=== PATIENT | female | born 1990 | race African-American/Black ===

== ENCOUNTER 2016-07-08 15:30 | Emergency (ER) | payer OTHER ==
[~2016-07-08] VITALS: Ht 157.5 cm; Wt 72.6 kg
[~2016-07-08 15:30] MED LIST: CYCL10TA2 PO; NAPR250T2 PO; NAPR550T PO
[2016-07-08 18:02] VITALS: BP 124/89
[2016-07-08 20:39] LABS: BILIRUBIN,URINE NEGATIVE (NEG); GLUCOSE,URINE NEGATIVE (NEG); NITRITE,URINE POSITIVE (NEG); PROTEIN,URINE NEGATIVE (NEG-TRACE)
[2016-07-08 20:58] LABS: BASO % 1 % (0-3); EOS % 2 % (0-3); HEMATOCRIT 38.9 % (36.0-47.0); HEMOGLOBIN 12.9 g/dL (12.0-15.5); LYMPH # 3.1 x10^3/uL (1.0-4.8); LYMPH % 41 % (24-48); MEAN CORPUSCULAR HEMOGLOBIN 32 pg (25-35); MEAN CORPUSCULAR HGB CONC 33 g/dL (31-37); MEAN CORPUSCULAR VOLUME 95 fL (79-100); MONO % 7 % (0-9); NEUT % 50 % (31-73); PLATELET COUNT 271 x10^3/uL (140-400); RED BLOOD COUNT 4.09 x10^6/uL (3.50-5.40); RED CELL DISTRIBUTION WIDTH 13.2 % (11.5-14.5); WHITE BLOOD COUNT 7.5 x10^3/uL (4.0-11.0)
[2016-07-08 21:02] LABS: BACTERIA,URINE 0 /HPF (0-FEW); RBC,URINE OCC /HPF (0-2); SQUAMOUS EPITHELIAL CELL,UR MOD /LPF
--- NOTE | 2016-07-08 21:34 | RAD ---
PROCEDURE Ob ultrasound 1st trimester and transvaginal OB ultrasound HISTORY Right pelvic pain and positive test TECHNIQUE Sonographic examination of the was performed by transabdominal and endovaginal technique. Multiple static images were obtained. OB ULTRASOUND LESS THAN 14 WEEKS The uterus measures 6.3 x 4.0 by 5.5 centimeters. There may be a gestational sac. Transvaginal OB ultrasound: The maternal cervix appears normal. Fluid in the fundus the uterus could be a gestational sac. The mean sac diameter of 1.0 centimeters would correspond with a 5 week 5 day gestational age and estimated date of confinement of March 05, 2017. The LMP of 04/02/2016 corresponds a 13 week 6 day gestational age and estimated date of confinement 01/07/2017. There is no yolk sac or pole identified. The right ovary appears normal with normal blood flow and measures 1.9 x 1.8 x 1.4 centimeters. There is a complex corpus luteal cyst on the right that measures 18 x 14 by 15 millimeters. The left ovary appears normal with normal blood flow and measures 2.9 x 1.8 by 2.2 centimeters. IMPRESSION There appears to be a gestational sac but no yolk sac or pole. This could be an early or a blighted ovum. Recommend correlation with serial quantitative beta HCG. If the continues a short-term followup ultrasound must be performed in order to document an intrauterine and thereby exclude a possible ectopic . Electronically signed by: Jasiel Gonzalez MD (Jul 08, 2016 21:33:35)
[2016-07-08 21:40] LABS: CALCIUM 9.4 mg/dL (8.5-10.1); CREATININE 0.6 mg/dL (0.6-1.0); GFR 146.2; POTASSIUM 3.5 mmol/L (3.5-5.1)
--- NOTE | 2016-07-08 21:55 | PHYS DOC ---
Past Medical History Past Medical History: Asthma Past Surgical History: Alcohol Use: Occasionally Drug Use: Marijuana Adult General Chief Complaint Chief Complaint: ABDOMINAL PAIN IN HPI HPI Patient is a 25 year old female who presents to the ER today secondary to abdominal pain and suprapubic area for one week. Patient reports her last menstrual period is unclear secondary to very irregular periods in general. Patient denies any vaginal bleeding. Patient has any vaginal discharge. Patient has no fevers shaking chills nausea vomiting diarrhea dysuria frequency or urgency. Patient has no history of hypertension diabetes liver lung or kidney problems. Patient reports she does not smoke or drink. Patient is allergic to penicillin. Patient is 4 para 3. Patient denies any other symptomatology at this time. Patient denies any history of STDs. Patient denies any history of ectopic pregnancies in the past Patient's physical exam is consistent with some mild tenderness to palpation in her suprapubic region. Patient is currently refusing a pelvic exam because she' s been here for 4 hours her kids are hungry and she does not want to have to wait any further. Patient's ER workup is significant for an ultrasound as below. Patient's beta hCG was approximately 5600. Patient's remainder of her labs were unremarkable. Given the beta-hCG and the ultrasound report I discussed with the patient detail that we are not able to rule out an ectopic , early , or an miscarriage. I have discussed with the patient that she will need to follow-up with an OB doctor for repeat hCG level and possibly repeat ultrasound within 2-3 days for reevaluation. Patient understand that she is to return immediately if she has any worsening pain or any other concern to the ER here so we can reevaluate her for possibility of an ectopic . Currently my suspicion for ectopic is low given her abdominal exam reveals minimal tenderness to palpation. The patient does understand that the ultrasound and the blood tests that we have done so far has not been able to exclude that diagnosis. [facility] [address] [place] [address] IMAGING REPORT Signed PATIENT: SHABBIR MAURO ACCOUNT: [id number] : 1990 LOCATION: ER AGE: 25 SEX: F EXAM STATUS: REG ER ORD. PHYSICIAN: JAREN FELIPE MD REASON: preg abd pain 1st triimester PROCEDURE: PREG 1ST TRIMESTER PROCEDURE Ob ultrasound 1st trimester and transvaginal OB ultrasound HISTORY Right pelvic pain and positive test TECHNIQUE Sonographic examination of the was performed by transabdominal and endovaginal technique. Multiple static images were obtained. OB ULTRASOUND LESS THAN 14 WEEKS The uterus measures 6.3 x 4.0 by 5.5 centimeters. There may be a gestational sac. Transvaginal OB ultrasound: The maternal cervix appears normal. Fluid in the fundus the uterus could be a gestational sac. The mean sac diameter of 1.0 centimeters would correspond with a 5 week 5 day gestational age and estimated date of confinement of March 05, 2017. The LMP of 04/02/2016 corresponds a 13 week 6 day gestational age and estimated date of confinement 01/07/2017. There is no yolk sac or pole identified. The right ovary appears normal with normal blood flow and measures 1.9 x 1.8 x 1.4 centimeters. There is a complex corpus luteal cyst on the right that measures 18 x 14 by 15 millimeters. The left ovary appears normal with normal blood flow and measures 2.9 x 1.8 by 2.2 centimeters. IMPRESSION There appears to be a gestational sac but no yolk sac or pole. This could be an early or a blighted ovum. Recommend correlation with serial quantitative beta HCG. If the continues a short-term followup ultrasound must be performed in order to document an intrauterine and thereby exclude a possible ectopic . Electronically signed by: Damon Cantrell MD (Jul 08, 2016 21:33:35) DICTATED and SIGNED BY: DAMON CANTRELL III, MD DATE: 07/08/162132 CC: JAREN FELIPE MD; NO PCP ~ Review of Systems Review of Systems Constitutional: Denies fever or chills [] Eyes: Denies change in visual acuity, redness, or eye pain [] All other review systems negative except as documented in the history of present illness portion. Allergies Allergies Allergies Coded Allergies Type Severity Reaction Last Updated Verified Penicillins Allergy Intermediate rash, hives 10/09/15 Yes amoxicillin Allergy Intermediate rash, hives 10/09/15 Yes Physical Exam Physical Exam Constitutional: Well developed, well nourished, no acute distress, non-toxic appearance. [] HENT: Normocephalic, atraumatic, bilateral external ears normal, oropharynx moist, no oral exudates, nose normal. [] Eyes: PERRLA, EOMI, conjunctiva normal, no discharge. [] Neck: Normal range of motion, no tenderness, supple, no stridor. [] Cardiovascular:Heart rate regular rhythm, no murmur [] Lungs & Thorax: Bilateral breath sounds clear to auscultation [] Abdomen: Bowel sounds normal, soft, mild tenderness to palpation suprapubic region tenderness, no masses, no pulsatile masses. [] Skin: Warm, dry, no erythema, no rash. [] Back: No tenderness, no CVA tenderness. [] Extremities: No tenderness, no cyanosis, no clubbing, ROM intact, no edema. [] Neurologic: Alert and oriented X 3, normal motor function, normal sensory function, no focal deficits noted. [] Psychologic: Affect normal, judgement normal, mood normal. [] Current Patient Data Vital Signs Vital Signs Date Time Temp Pulse Resp B/P Pulse Ox O2 Delivery O2 Flow Rate FiO2 07/08/16 18:02 98.4 85 18 124/89 98 Room Air 98.4 Lab Values Laboratory Tests Test 07/08/16 19:30 07/08/16 20:25 07/08/16 20:30 Urine Color Yellow Urine Clarity Cloudy Urine pH 7.0 Urine Specific [place] >=1.030 Urine Protein Negativemg/dL (NEG-TRACE) Urine Glucose (UA) Negativemg/dL (NEG) Urine Ketones (Stick) Negativemg/dL (NEG) Urine Blood Negative (NEG) Urine Nitrite Positive (NEG) Urine Bilirubin Negative (NEG) Urine Urobilinogen Dipstick 1.0mg/dL (0.2 mg/dL) Urine Leukocyte Esterase Trace (NEG) Urine RBC Occ/HPF (0-2) Urine WBC 1-4/HPF (0-4) Urine Squamous Epithelial Cells Mod/LPF Urine Amorphous Sediment Present/HPF Urine Bacteria 0/HPF (0-FEW) POC Urine HCG, Qualitative Hcg positive (Negative) White Blood Count 7.5x10^3/uL (4.0-11.0) Red Blood Count 4.09x10^6/uL (3.50-5.40) Hemoglobin 12.9g/dL (12.0-15.5) Hematocrit 38.9% (36.0-47.0) Mean Corpuscular Volume 95fL (79-100) Mean Corpuscular Hemoglobin 32pg (25-35) Mean Corpuscular Hemoglobin Concent 33g/dL (31-37) Red Cell Distribution Width 13.2% (11.5-14.5) Platelet Count 271x10^3/uL (140-400) Neutrophils (%) (Auto) 50% (31-73) Lymphocytes (%) (Auto) 41% (24-48) Monocytes (%) (Auto) 7% (0-9) Eosinophils (%) (Auto) 2% (0-3) Basophils (%) (Auto) 1% (0-3) Neutrophils # (Auto) 3.7x10^3uL (1.8-7.7) Lymphocytes # (Auto) 3.1x10^3/uL (1.0-4.8) Monocytes # (Auto) 0.5x10^3/uL (0.0-1.1) Eosinophils # (Auto) 0.1x10^3/uL (0.0-0.7) Basophils # (Auto) 0.0x10^3/uL (0.0-0.2) Maternal Serum HCG Beta Subunit 5659mIU/mL (0-6) H Sodium Level 140mmol/L (136-145) Potassium Level 3.5mmol/L (3.5-5.1) Chloride Level 102mmol/L (98-107) Carbon Dioxide Level 27mmol/L (21-32) Anion Gap 11 (6-14) Blood Urea Nitrogen 10mg/dL (7-20) Creatinine 0.6mg/dL (0.6-1.0) Estimated GFR (Cockcroft-Gault) 146.2 Glucose Level 82mg/dL (70-99) Calcium Level 9.4mg/dL (8.5-10.1) Laboratory Tests 07/08/16 20:30 Laboratory Tests 07/08/16 20:30 EKG EKG [] Radiology/Procedures Radiology/Procedures [] Course & Med Decision Making Course & Med Decision Making Pertinent Labs and Imaging studies reviewed. (See chart for details) [] Dragon Disclaimer Dragon Disclaimer This electronic medical record was generated, in whole or in part, using a voice recognition dictation system. Departure Departure Impression: Primary Impression: Threatened miscarriage in early Additional Impression: Early stage of Disposition: 01 HOME, SELF-CARE Condition: STABLE Referrals: NO PCP (PCP) Patient Instructions: Threatened Miscarriage Additional Instructions: [facility] [address] [place] [address] IMAGING REPORT Signed PATIENT: SHABBIR MAURO ACCOUNT: [id number] : 1990 LOCATION: ER AGE: 25 SEX: F EXAM STATUS: REG ER ORD. PHYSICIAN: JAREN FELIPE MD REASON: preg abd pain 1st triimester PROCEDURE: PREG 1ST TRIMESTER PROCEDURE Ob ultrasound 1st trimester and transvaginal OB ultrasound HISTORY Right pelvic pain and positive test TECHNIQUE Sonographic examination of the was performed by transabdominal and endovaginal technique. Multiple static images were obtained. OB ULTRASOUND LESS THAN 14 WEEKS The uterus measures 6.3 x 4.0 by 5.5 centimeters. There may be a gestational sac. Transvaginal OB ultrasound: The maternal cervix appears normal. Fluid in the fundus the uterus could be a gestational sac. The mean sac diameter of 1.0 centimeters would correspond with a 5 week 5 day gestational age and estimated date of confinement of March 05, 2017. The LMP of 04/02/2016 corresponds a 13 week 6 day gestational age and estimated date of confinement 01/07/2017. There is no yolk sac or pole identified. The right ovary appears normal with normal blood flow and measures 1.9 x 1.8 x 1.4 centimeters. There is a complex corpus luteal cyst on the right that measures 18 x 14 by 15 millimeters. The left ovary appears normal with normal blood flow and measures 2.9 x 1.8 by 2.2 centimeters. IMPRESSION There appears to be a gestational sac but no yolk sac or pole. This could be an early or a blighted ovum. Recommend correlation with serial quantitative beta HCG. If the continues a short-term followup ultrasound must be performed in order to document an intrauterine and thereby exclude a possible ectopic . Electronically signed by: Damon Cantrell MD (Jul 08, 2016 21:33:35) DICTATED and SIGNED BY: DAMON CANTRELL III, MD DATE: 07/08/162132 CC: JAREN FELIPE MD; NO PCP ~ Please follow up with your primary care physician or an deep sea diver for repeat evaluation of your hormone level and ultrasound. Please take this copy of the ultrasound report with you. Please return to the ER if she has any increasing abdominal pain, bleeding, or any concerns whatsoever. As discussed we are unable to rule out a tubal at this time in the ER. This will need to be ruled out by your primary OB doctor. Problem Qualifiers JAREN FELIPE MD Jul 08, 2016 21:55
== END 2016-07-08 19:50 | disposition home or self-care (01) ==
LOC: ER 15:30
DX: O20.0 Threatened abortion (principal); O99.511 Diseases of the respiratory system complicating pregnancy, first trimester; J45.909 Unspecified asthma, uncomplicated; O99.321 Drug use complicating pregnancy, first trimester; F12.10 Cannabis abuse, uncomplicated; Z3A.01 Less than 8 weeks gestation of pregnancy; Z88.0 Allergy status to penicillin; Z88.1 Allergy status to other antibiotic agents; Z98.890 Other specified postprocedural states
CPT/HCPCS: 36415; 76801; 80048; 81001; 81025; 84702; 85027; 86900; 86901; 87086; 99285-25

== ENCOUNTER 2016-09-21 21:00 | Emergency (ER) | payer OTHER ==
[2016-09-21] MEDS ORDERED: IV NORMAL SALINE 1000ML BAG 1,000 ML IV ONE ×2 (21:30→21:45)
[2016-09-21 21:45] LABS: BASO % 1 % (0-3); EOS % 2 % (0-3); HEMATOCRIT 43.6 % (36.0-47.0); HEMOGLOBIN 14.8 g/dL (12.0-15.5); LYMPH # 1.6 x10^3/uL (1.0-4.8); LYMPH % 22 % (24-48); MEAN CORPUSCULAR HEMOGLOBIN 32 pg (25-35); MEAN CORPUSCULAR HGB CONC 34 g/dL (31-37); MEAN CORPUSCULAR VOLUME 95 fL (79-100); MONO % 6 % (0-9); NEUT % 70 % (31-73); PLATELET COUNT 277 x10^3/uL (140-400); RED CELL DISTRIBUTION WIDTH 12.9 % (11.5-14.5); WHITE BLOOD COUNT 7.5 x10^3/uL (4.0-11.0)
[2016-09-21] MEDS ORDERED: ONDANSETRON PF 4 MG/2 ML VIAL. IV ONE ×2 (21:45)
[2016-09-21 21:56] LABS: CALCIUM 9.6 mg/dL (8.5-10.1); CREATININE 0.7 mg/dL (0.6-1.0); GFR 121.5; POTASSIUM 3.4 mmol/L (3.5-5.1)
[2016-09-21 22:02] LABS: ALBUMIN 4.2 g/dL (3.4-5.0); TOTAL BILIRUBIN 0.3 mg/dL (0.2-1.0); TOTAL PROTEIN 8.3 g/dL (6.4-8.2)
[2016-09-21 23:39] LABS: BILIRUBIN,URINE NEGATIVE (NEG); GLUCOSE,URINE NEGATIVE (NEG); NITRITE,URINE NEGATIVE (NEG); PROTEIN,URINE 100 mg/dL (NEG-TRACE); UROBILINOGEN,URINE 0.2 mg/dL (0.2 mg/dL)
[2016-09-21 23:44] LABS: BACTERIA,URINE MODERATE /HPF (0-FEW); RBC,URINE OCC /HPF (0-2); SQUAMOUS EPITHELIAL CELL,UR MANY /LPF
[2016-09-22] MEDS ORDERED: KETOROLAC 15 MG/ML VIAL. IV ONE
[2016-09-22] MEDS ORDERED: ONDANSETRON PF 4 MG/2 ML VIAL. IV ONE
[2016-09-22] MEDS ORDERED: HYDROmorphone 2 MG/ML VIAL IV ONE
[2016-09-22] MEDS ORDERED: IV NORMAL SALINE 1000ML BAG 1,000 ML IV ONE
[2016-09-22 00:33] VITALS: BP 156/95
[2016-09-22] MEDS ORDERED: ONDA4TAB10 SL (01:05)
[2016-09-22] MEDS ORDERED: OMEP20TA63 PO (01:05)
--- NOTE | 2016-09-22 01:05 | PHYS DOC ---
Past Medical History Past Medical History: Asthma Past Surgical History: Alcohol Use: Occasionally Drug Use: Marijuana Adult General Chief Complaint Chief Complaint: ABDOMINAL PAIN HPI HPI Patient is a 26 year old female who presents here today complaining of pain to her periumbilical area. Intermittent this morning. Patient reports that she drank a lot of alcohol yesterday. Patient did not fully laboratory but she reports she drank at least a 12 pack of beer and at least 2 bottles of liquor that were playing size. Patient denies any past medical history. Patient has any history of hypertension diabetes liver longer kidney problems. Patient denies any surgeries in the past. Patient has not had a cholecystectomy, hysterectomy, appendectomy. Patient does not smoke. Patient does not do any drugs. Patient reports that she is not a heavy drinker although she says that she has binge drinks approximately once or twice a week. Patient denies any fevers shakes chills. Patient has any diarrhea. Patient denies any dysuria frequency or urgency. Patient has any vaginal discharge. Patient denies any melena or bright red blood per rectum. Patient reports that she had D&C recently. Patient's last menstrual period was April 2016. Patient's physical exam the ER was significant for some tenderness to palpation in her midepigastric region. Patient had no rebound or guarding. Patient has normal active bowel sounds. Patient did not have a Casillas sign. Patient has no tenderness at McBurney's point. Patient is not exhibiting any signs or symptoms of be consistent with an acute surgical abdomen. Patient's ER workup was significant for normal labs. While in the ER patient was given IV fluids and pain meds initially. Initially was believe that the patient may have early pancreatitis. Patient's pain significantly improved in the ED after pain medicines here in the fluids. Upon reevaluation of the patient she is requesting to be discharged home she feels much improved. I discussed with the patient that she needs to eliminate alcohol from her life. I discussed with her that this might be early pancreatitis and that if she has any further pain or discomfort that she is to return to the ER for reevaluation. Patient was recommended to remain with a brat diet over the next 24-48 hours. Patient was to use clear liquids, rice, applesauce and toast. Patient understands the importance of this. Patient was given a prescription for antiemetics. Patient reports that her families outside waiting for that she is anxious to leave this time. Review of Systems Review of Systems Constitutional: Denies fever or chills [] Eyes: Denies change in visual acuity, redness, or eye pain [] All other review systems are negative except as documented in the history of present illness portion. Current Medications Current Medications Current Medications Medications (Trade) Dose Ordered Sig/Augustin Start Time Stop Time Status Last Admin Dose Admin Hydromorphone HCl (Dilaudid) 1 mg 1X ONCE 09/22/16 00:00 09/22/16 00:01 DC 09/22/16 00:25 1 MG Ketorolac Tromethamine (Toradol) 15 mg 1X ONCE 09/22/16 00:00 09/22/16 00:01 DC 09/22/16 00:24 15 MG Ondansetron HCl (Zofran) 4 mg 1X ONCE 09/22/16 00:00 09/22/16 00:01 DC 09/22/16 00:24 4 MG Sodium Chloride 1,000 ml @ 1,000 mls/hr 1X ONCE 09/22/16 00:00 09/22/16 00:59 DC 09/22/16 00:25 1,000 MLS/HR Allergies Allergies Allergies Coded Allergies Type Severity Reaction Last Updated Verified Penicillins Allergy Intermediate rash, hives 10/09/15 Yes amoxicillin Allergy Intermediate rash, hives 10/09/15 Yes Physical Exam Physical Exam Constitutional: Well developed, well nourished, no acute distress, non-toxic appearance. [] HENT: Normocephalic, atraumatic, bilateral external ears normal, oropharynx moist, no oral exudates, nose normal. [] Eyes: PERRLA, EOMI, conjunctiva normal, no discharge. [] Neck: Normal range of motion, no tenderness, supple, no stridor. [] Cardiovascular:Heart rate regular rhythm, no murmur [] Lungs & Thorax: Bilateral breath sounds clear to auscultation [] Abdomen: See above Skin: Warm, dry, no erythema, no rash. [] Back: No tenderness, no CVA tenderness. [] Extremities: No tenderness, no cyanosis, no clubbing, ROM intact, no edema. [] Neurologic: Alert and oriented X 3, normal motor function, normal sensory function, no focal deficits noted. [] Psychologic: Affect normal, judgement normal, mood normal. [] Current Patient Data Vital Signs Vital Signs Date Time Temp Pulse Resp B/P (MAP) Pulse Ox O2 Delivery O2 Flow Rate FiO2 09/22/16 00:33 89 19 156/95 (115) 97 Room Air 09/21/16 21:15 98.5 98.5 Lab Values Laboratory Tests Test 09/21/16 21:20 09/21/16 22:37 09/21/16 23:25 White Blood Count 7.5 x10^3/uL (4.0-11.0) Red Blood Count 4.60 x10^6/uL (3.50-5.40) Hemoglobin 14.8 g/dL (12.0-15.5) Hematocrit 43.6 % (36.0-47.0) Mean Corpuscular Volume 95 fL (79-100) Mean Corpuscular Hemoglobin 32 pg (25-35) Mean Corpuscular Hemoglobin Concent 34 g/dL (31-37) Red Cell Distribution Width 12.9 % (11.5-14.5) Platelet Count 277 x10^3/uL (140-400) Neutrophils (%) (Auto) 70 % (31-73) Lymphocytes (%) (Auto) 22 % (24-48) L Monocytes (%) (Auto) 6 % (0-9) Eosinophils (%) (Auto) 2 % (0-3) Basophils (%) (Auto) 1 % (0-3) Neutrophils # (Auto) 5.3 x10^3uL (1.8-7.7) Lymphocytes # (Auto) 1.6 x10^3/uL (1.0-4.8) Monocytes # (Auto) 0.5 x10^3/uL (0.0-1.1) Eosinophils # (Auto) 0.1 x10^3/uL (0.0-0.7) Basophils # (Auto) 0.0 x10^3/uL (0.0-0.2) Sodium Level 144 mmol/L (136-145) Potassium Level 3.4 mmol/L (3.5-5.1) L Chloride Level 105 mmol/L (98-107) Carbon Dioxide Level 23 mmol/L (21-32) Anion Gap 16 (6-14) H Blood Urea Nitrogen 11 mg/dL (7-20) Creatinine 0.7 mg/dL (0.6-1.0) Estimated GFR (Cockcroft-Gault) 121.5 BUN/Creatinine Ratio 16 (6-20) Glucose Level 129 mg/dL (70-99) H Calcium Level 9.6 mg/dL (8.5-10.1) Total Bilirubin 0.3 mg/dL (0.2-1.0) Aspartate Amino Transferase (AST) 17 U/L (15-37) Alanine Aminotransferase (ALT) 29 U/L (14-59) Alkaline Phosphatase 50 U/L (46-116) Total Protein 8.3 g/dL (6.4-8.2) H Albumin 4.2 g/dL (3.4-5.0) Albumin/Globulin Ratio 1.0 (1.0-1.7) Lipase 155 U/L (73-393) POC Urine HCG, Qualitative Hcg negative (Negative) Urine Collection Type Unknown Urine Color Yellow Urine Clarity Turbid Urine pH 8.0 Urine Specific [place] >=1.030 Urine Protein 100 mg/dL (NEG-TRACE) Urine Glucose (UA) Negative mg/dL (NEG) Urine Ketones (Stick) Negative mg/dL (NEG) Urine Blood Small (NEG) Urine Nitrite Negative (NEG) Urine Bilirubin Negative (NEG) Urine Urobilinogen Dipstick 0.2 mg/dL (0.2 mg/dL) Urine Leukocyte Esterase Trace (NEG) Urine RBC Occ /HPF (0-2) Urine WBC 1-4 /HPF (0-4) Urine Squamous Epithelial Cells Many /LPF Urine Bacteria Moderate /HPF (0-FEW) Urine Mucus Marked /LPF Laboratory Tests 09/21/16 21:20 Laboratory Tests 09/21/16 21:20 EKG EKG [] Radiology/Procedures Radiology/Procedures [] Course & Med Decision Making Course & Med Decision Making Pertinent Labs and Imaging studies reviewed. (See chart for details) [] Dragon Disclaimer Dragon Disclaimer This electronic medical record was generated, in whole or in part, using a voice recognition dictation system. Departure Departure Impression: Primary Impression: Gastritis Additional Impression: Abdominal pain Disposition: HOME, SELF-CARE Condition: IMPROVED Referrals: NO PCP (PCP) Patient Instructions: Abdominal Pain (Nonspecific), Alcohol Problems, Gastritis , Adult Scripts Ondansetron (ZOFRAN ODT) 4 Mg Tab.rapdis 1 TAB SL Q6HRS Y for NAUSEA, #12 TAB Prov: JAREN FELIPE MD 09/22/16 Omeprazole Magnesium (PRILOSEC OTC) 20 Mg Tablet.dr 1 TAB PO DAILY, #30 TAB 3 Refills Prov: JAREN FELIPE MD 09/22/16 Problem Qualifiers Primary Impression: Gastritis Gastritis type: alcoholic Chronicity: acute Gastritis bleeding: without bleeding Qualified Codes: K29.20 - Alcoholic gastritis without bleeding Additional Impression: Abdominal pain Abdominal location: epigastric Qualified Codes: R10.13 - Epigastric pain JAREN FELIPE MD September 22, 2016 01:05
== END 2016-09-22 01:16 | disposition home or self-care (01) ==
LOC: ER 21:00
DX: K29.20 Alcoholic gastritis without bleeding (principal); F10.10 Alcohol abuse, uncomplicated; J45.909 Unspecified asthma, uncomplicated; F12.10 Cannabis abuse, uncomplicated; Z88.1 Allergy status to other antibiotic agents; Z88.0 Allergy status to penicillin
CPT/HCPCS: 36415; 80053; 81001; 81025; 83690; 85027; 87086; 96361; 96374; 96375; 96376; 99284; J1170; J1885; J2405; J7030

== ENCOUNTER 2017-01-18 18:11 | Emergency (ER) | payer OTHER ==
[~2017-01-18] VITALS: Ht 157.5 cm; Wt 72.6 kg
[~2017-01-18 18:11] MED LIST changes: +NAPR-682 PO; -NAPR250T2 PO; +NAPR250T6 PO; -NAPR550T PO; +OMEP20TA63 PO; +ONDA4TAB10 SL
[2017-01-18 18:55] LABS: BASO % 1 % (0-3); EOS % 3 % (0-3); HEMATOCRIT 38.5 % (36.0-47.0); HEMOGLOBIN 13.2 g/dL (12.0-15.5); LYMPH # 2.4 x10^3/uL (1.0-4.8); LYMPH % 31 % (24-48); MEAN CORPUSCULAR HEMOGLOBIN 32 pg (25-35); MEAN CORPUSCULAR HGB CONC 34 g/dL (31-37); MEAN CORPUSCULAR VOLUME 93 fL (79-100); MONO % 10 % (0-9); NEUT % 55 % (31-73); PLATELET COUNT 275 x10^3/uL (140-400); RED BLOOD COUNT 4.14 x10^6/uL (3.50-5.40); RED CELL DISTRIBUTION WIDTH 12.8 % (11.5-14.5); WHITE BLOOD COUNT 7.7 x10^3/uL (4.0-11.0)
[2017-01-18 18:57] LABS: BILIRUBIN,URINE NEGATIVE (NEG); GLUCOSE,URINE NEGATIVE (NEG); NITRITE,URINE NEGATIVE (NEG); PH,URINE 6.5; PROTEIN,URINE NEGATIVE (NEG-TRACE); UROBILINOGEN,URINE 0.2 mg/dL (0.2 mg/dL)
[2017-01-18] MEDS ORDERED: ONDANSETRON ODT 4 MG TAB.RAPDIS. PO ONE (19:00)
[2017-01-18 19:11] LABS: CALCIUM 9.5 mg/dL (8.5-10.1); CREATININE 0.6 mg/dL (0.6-1.0); GFR 145.1; POTASSIUM 3.9 mmol/L (3.5-5.1)
[2017-01-18 19:16] LABS: ALBUMIN/GLOBULIN RATIO 1.1 (1.0-1.7); TOTAL BILIRUBIN 0.2 mg/dL (0.2-1.0); TOTAL PROTEIN 7.7 g/dL (6.4-8.2)
[2017-01-18 19:17] LABS: BACTERIA,URINE 0 /HPF (0-FEW); SQUAMOUS EPITHELIAL CELL,UR FEW /LPF; WBC,URINE 0 /HPF (0-4)
[2017-01-18 20:07] VITALS: BP 108/62
--- NOTE | 2017-01-18 20:17 | PHYS DOC ---
Past Medical History Past Medical History: Asthma Past Surgical History: Additional Past Surgical Histo: D&C Alcohol Use: Occasionally Drug Use: Marijuana Adult General Chief Complaint Chief Complaint: ABDOMINAL PAIN HPI HPI Patient is a 26 year old female who presents with intermittent abdominal pain/ pelvic pain for the past 2 weeks, abdominal distention, and nausea. Pain localizes over left lower quadrant. Patient denies urinary frequency urgency hematuria. No flank pain, vomiting or history of kidney stones. No fever chills , sweats. Patient has had irregular menstrual periods since miscarrying 5 months ago. Prior abdominal surgeries. Patient's last menstrual period was 6 weeks ago. Review of Systems Review of Systems Review of systems as per history of present illness. All other review symptoms are negative. Current Medications Current Medications Current Medications Medications (Trade) Dose Ordered Sig/Augustin Start Time Stop Time Status Last Admin Dose Admin Ondansetron HCl (Zofran Odt) 4 mg 1X ONCE 01/18/17 19:00 01/18/17 19:01 DC 01/18/17 18:55 4 MG Allergies Allergies Allergies Coded Allergies Type Severity Reaction Last Updated Verified Penicillins Allergy Intermediate rash, hives 10/09/15 Yes amoxicillin Allergy Intermediate rash, hives 10/09/15 Yes Physical Exam Physical Exam Constitutional: Well developed, well nourished, no acute distress, non-toxic appearance. [] HENT: Normocephalic, atraumatic, bilateral external ears normal, oropharynx moist, no oral exudates, nose normal. [] Eyes: PERRLA, EOMI, conjunctiva normal, no discharge. [] Neck: Normal range of motion, no tenderness, supple, no stridor. [] Cardiovascular:Heart rate regular rhythm, no murmur [] Lungs & Thorax: Bilateral breath sounds clear to auscultation [] Abdomen: Bowel sounds normal, soft, mild distention, increased bowel sounds, vague left lower quadrant pain, tenderness.. [] Skin: Warm, dry, no erythema. [] Back: No tenderness, no CVA tenderness. [] Extremities: No tenderness, no cyanosis, no clubbing, ROM intact, no edema. [] Neurologic: Alert and oriented X 3, normal motor function, normal sensory function, no focal deficits noted. [] Psychologic: Affect normal, judgement normal, mood normal. [] Current Patient Data Vital Signs Vital Signs Date Time Temp Pulse Resp B/P (MAP) Pulse Ox O2 Delivery O2 Flow Rate FiO2 01/18/17 20:07 84 16 108/62 (77) Room Air 01/18/17 19:37 95 01/18/17 18:35 98.0 98.0 Lab Values Laboratory Tests Test 01/18/17 17:48 01/18/17 18:45 POC Urine HCG, Qualitative Hcg positive (Negative) White Blood Count 7.7 x10^3/uL (4.0-11.0) Red Blood Count 4.14 x10^6/uL (3.50-5.40) Hemoglobin 13.2 g/dL (12.0-15.5) Hematocrit 38.5 % (36.0-47.0) Mean Corpuscular Volume 93 fL (79-100) Mean Corpuscular Hemoglobin 32 pg (25-35) Mean Corpuscular Hemoglobin Concent 34 g/dL (31-37) Red Cell Distribution Width 12.8 % (11.5-14.5) Platelet Count 275 x10^3/uL (140-400) Neutrophils (%) (Auto) 55 % (31-73) Lymphocytes (%) (Auto) 31 % (24-48) Monocytes (%) (Auto) 10 % (0-9) H Eosinophils (%) (Auto) 3 % (0-3) Basophils (%) (Auto) 1 % (0-3) Neutrophils # (Auto) 4.2 x10^3uL (1.8-7.7) Lymphocytes # (Auto) 2.4 x10^3/uL (1.0-4.8) Monocytes # (Auto) 0.8 x10^3/uL (0.0-1.1) Eosinophils # (Auto) 0.3 x10^3/uL (0.0-0.7) Basophils # (Auto) 0.0 x10^3/uL (0.0-0.2) Urine Collection Type Unknown Urine Color Yellow Urine Clarity Clear Urine pH 6.5 Urine Specific [place] 1.010 Urine Protein Negative mg/dL (NEG-TRACE) Urine Glucose (UA) Negative mg/dL (NEG) Urine Ketones (Stick) Negative mg/dL (NEG) Urine Blood Negative (NEG) Urine Nitrite Negative (NEG) Urine Bilirubin Negative (NEG) Urine Urobilinogen Dipstick 0.2 mg/dL (0.2 mg/dL) Urine Leukocyte Esterase Negative (NEG) Urine RBC 1-2 /HPF (0-2) Urine WBC 0 /HPF (0-4) Urine Squamous Epithelial Cells Few /LPF Urine Bacteria 0 /HPF (0-FEW) Maternal Serum HCG Beta Subunit 853 mIU/mL (0-5) H Sodium Level 137 mmol/L (136-145) Potassium Level 3.9 mmol/L (3.5-5.1) Chloride Level 101 mmol/L (98-107) Carbon Dioxide Level 25 mmol/L (21-32) Anion Gap 11 (6-14) Blood Urea Nitrogen 12 mg/dL (7-20) Creatinine 0.6 mg/dL (0.6-1.0) Estimated GFR (Cockcroft-Gault) 145.1 BUN/Creatinine Ratio 20 (6-20) Glucose Level 93 mg/dL (70-99) Calcium Level 9.5 mg/dL (8.5-10.1) Total Bilirubin 0.2 mg/dL (0.2-1.0) Aspartate Amino Transferase (AST) 14 U/L (15-37) L Alanine Aminotransferase (ALT) 22 U/L (14-59) Alkaline Phosphatase 42 U/L (46-116) L Total Protein 7.7 g/dL (6.4-8.2) Albumin 4.0 g/dL (3.4-5.0) Albumin/Globulin Ratio 1.1 (1.0-1.7) Laboratory Tests 01/18/17 18:45 Laboratory Tests 01/18/17 18:45 EKG EKG [] Radiology/Procedures Radiology/Procedures [OB ultrasound: 5 week, 5 day intrauterine gestational sac with no pole or yolk sac seen, small amount of free fluid posterior cul-de-sac, right-sided corpus luteal cyst per radiology report] Course & Med Decision Making Course & Med Decision Making Pertinent Labs and Imaging studies reviewed. (See chart for details) [Nonspecific abdominal pain. Abdomen nonsurgical on serial evaluation. GI symptoms, with menstrual period. Patient is 5 weeks 5 days with evidence of true uterine gestational sac, right corpus luteum and no evidence of ectopic . Nausea addressed while in the emergency department. Recommend continued care, Tylenol and Dramamine for nausea with OB follow-up. Return precautions reviewed.] Dragcarlos Disclaimer Dragon Disclaimer This electronic medical record was generated, in whole or in part, using a voice recognition dictation system. Departure Departure Impression: Primary Impression: Pelvic pain during in first trimester, antepartum Additional Impression: Vaginitis Disposition: 01 HOME, SELF-CARE Condition: GOOD Referrals: NO PCP (PCP) Problem Qualifiers JAE GUILLORY DO Jan 18, 2017 20:17
--- NOTE | 2017-01-18 21:33 | RAD ---
Obstetric ultrasound less than 14 weeks with transvaginal: Reason for examination: Cramping for 7 hours. Unsure of last menstrual period. A1. Transabdominal ultrasound examination was performed. The uterus measures 8.9 x 3.4 x 5.1 cm in greatest dimension with no focal mass. Endometrium is not abnormally thickened at 1.1 cm. The right ovary measures 4.0 x 4.4 x 3.0 cm in greatest dimension and contains a 2.8 x 2.6 x 2.4 cm cystic lesion. The left ovary measures 3.2 x 1.8 cm in greatest dimension and shows no focal lesion. Transvaginally, cervix is normal in the 4 cm and is closed. Uterus measures 8.8 x 3.7 cm in greatest dimension. Endometrium is slightly thickened at 1.6 cm and there is a probable gestational sac measuring 9.9 mm in greatest dimension consistent with a gestational age of 5 weeks 5 days. A pole and yolk sac are not seen. Right ovary again shows a 2.7 x 2.6 x 2.5 cm cystic lesion consistent with a probable corpus luteal cyst. The left ovary shows a few small follicles and normal vascular flow. There is a very small amount of free fluid in the pelvic cul-de-sac. IMPRESSION: Small 9.9 mm fluid collection probably representing an intrauterine gestational sac with gestational age of 5 weeks 5 days but no pole or yolk sac identified. 2.7 cm cystic lesion in the right ovary probably representing a corpus luteal cyst. Small amount of free fluid in the pelvic cul-de-sac. Electronically signed by: Verenice Mccray MD (01/18/2017 9:29 PM) [facility]
== END 2017-01-18 21:45 | disposition home or self-care (01) ==
LOC: ER 18:11
DX: O23.591 Infection of other part of genital tract in pregnancy, first trimester (principal); N76.0 Acute vaginitis; O26.891 Other specified pregnancy related conditions, first trimester; R10.2 Pelvic and perineal pain; O99.511 Diseases of the respiratory system complicating pregnancy, first trimester; J45.909 Unspecified asthma, uncomplicated; Z3A.01 Less than 8 weeks gestation of pregnancy; Z88.0 Allergy status to penicillin; Z88.1 Allergy status to other antibiotic agents
CPT/HCPCS: 36415; 76801; 76817; 80053; 81001; 81025; 84702; 85025; 99285; Q0162

== ENCOUNTER 2017-01-28 20:14 | Emergency (ER) | payer OTHER ==
[~2017-01-28] VITALS: Ht 157.5 cm; Wt 72.6 kg
[2017-01-28 20:54] VITALS: BP 101/59
--- NOTE | 2017-01-28 22:27 | PHYS DOC ---
Past Medical History Past Medical History: Asthma Past Surgical History: Additional Past Surgical Histo: D&C Alcohol Use: Occasionally Drug Use: Marijuana Adult General Chief Complaint Chief Complaint: MULTIPLE COMPLAINTS [facility] Patient is a 26 year old female with history of asthma who presents today with a productive cough and scratchy throat for 6 days. Patient states she's also had subjective fevers. Patient states she is unknown how far along last Menstrual cycle may be in December 04 2016. She states she was seen by the OB and was put on progesterone. She states she left her progesterone in [place] and would like another prescription for it. Patient denies any nausea vomiting. Denies any urgency frequency dysuria. Denies any back pain. Denies any abdominal pain. Review of Systems Review of Systems Constitutional: Denies fever or chills [] Eyes: Denies change in visual acuity, redness, or eye pain [] HENT: sore throat [] Respiratory: cough Cardiovascular: No additional information not addressed in HPI [] GI: Denies abdominal pain, nausea, vomiting, bloody stools or diarrhea [] : Denies dysuria or hematuria [] Musculoskeletal: Denies back pain or joint pain [] Integument: Denies rash or skin lesions [] Neurologic: Denies headache, focal weakness or sensory changes [] Endocrine: Denies polyuria or polydipsia [] Allergies Allergies Allergies Coded Allergies Type Severity Reaction Last Updated Verified Penicillins Allergy Intermediate rash, hives 10/09/15 Yes amoxicillin Allergy Intermediate rash, hives 10/09/15 Yes Physical Exam Physical Exam Constitutional: Well developed, well nourished, no acute distress, non-toxic appearance. [] HENT: Normocephalic, atraumatic, bilateral external ears normal, oropharynx moist, no oral exudates, nose normal. [] Eyes: PERRLA, EOMI, conjunctiva normal, no discharge. [] Neck: Normal range of motion, no tenderness, supple, no stridor. [] Cardiovascular:Heart rate regular rhythm, no murmur [] Lungs & Thorax: Bilateral breath sounds clear to auscultation [] Abdomen: Bowel sounds normal, soft, no tenderness, no masses, no pulsatile masses. [] Skin: Warm, dry, no erythema, no rash. [] Back: No tenderness, no CVA tenderness. [] Extremities: No tenderness, no cyanosis, no clubbing, ROM intact, no edema. [] Neurologic: Alert and oriented X 3, normal motor function, normal sensory function, no focal deficits noted. [] Psychologic: Affect normal, judgement normal, mood normal. [] Current Patient Data Vital Signs Vital Signs Date Time Temp Pulse Resp B/P (MAP) Pulse Ox O2 Delivery O2 Flow Rate FiO2 01/28/17 20:54 98.7 75 20 100 Room Air 98.7 EKG EKG [] Radiology/Procedures Radiology/Procedures [] Course & Med Decision Making Course & Med Decision Making Pertinent Labs and Imaging studies reviewed. (See chart for details) This is a well-appearing 26-year-old female patient presenting to the ED today with sore throat, productive cough, and requests for progesterone. She is currently unknown how far along. She states she was prescribed progesterone by the SENIOR STAFF ACCOUNTANT but she forgot to the medication in [place] . She would like another Rx for progesterone and does not know the strength. She would also like something for her cough. Informed her she is at recommended she continue using her albuterol inhaler for her cough as well as a humidifier air. Recommended she contact her SENIOR STAFF ACCOUNTANT for progesterone refill. Provided return precautions and discharged in stable condition. Dragon Disclaimer Dragon Disclaimer This electronic medical record was generated, in whole or in part, using a voice recognition dictation system. Departure Departure Impression: Primary Impression: Cough Additional Impressions: Viral pharyngitis Disposition: HOME, SELF-CARE Condition: STABLE Referrals: NO PCP (PCP) follow up with your OBGYN tomorrow for progestrone Patient Instructions: ABCs of , Cough, Adult, Viral Pharyngitis Additional Instructions: You were seen with multiple complaints in the emergency room. We highly recommend you contact your SENIOR STAFF ACCOUNTANT tomorrow morning for progesterone refill. Continue using breathing treatments as needed for cough. You can use a humidifier in the room, it will help with the coughing. You can use saltwater gargles. You can take Tylenol for pain. Problem Qualifiers Additional Impressions: Weeks of gestation: unspecified Qualified Codes: Z34.90 - Encounter for supervision of normal , unspecified, unspecified trimester ASTRID VEE APRN Jan 28, 2017 22:27
== END 2017-01-28 22:43 | disposition home or self-care (01) ==
LOC: ER 20:14
DX: Z34.90 Encounter for supervision of normal pregnancy, unspecified, unspecified trimester (principal); J02.8 Acute pharyngitis due to other specified organisms; J45.909 Unspecified asthma, uncomplicated; B97.89 Other viral agents as the cause of diseases classified elsewhere; Z3A.00 Weeks of gestation of pregnancy not specified; Z98.890 Other specified postprocedural states; Z88.0 Allergy status to penicillin; Z88.1 Allergy status to other antibiotic agents
CPT/HCPCS: 99281

== ENCOUNTER 2017-03-10 11:14 | Emergency (ER) | payer OTHER ==
[~2017-03-10] VITALS: Ht 157.5 cm; Wt 72.6 kg
[2017-03-10 11:24] VITALS: BP 123/75
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
== END 2017-03-10 14:30 | disposition home or self-care (01) ==
LOC: ER 11:14
DX: S09.90XA Unspecified injury of head, initial encounter (principal); M54.5 Low back pain; M25.511 Pain in right shoulder; J45.909 Unspecified asthma, uncomplicated; F12.10 Cannabis abuse, uncomplicated; Z88.1 Allergy status to other antibiotic agents; Z88.0 Allergy status to penicillin; V89.2XXA Person injured in unspecified motor-vehicle accident, traffic, initial encounter; Y93.89 Activity, other specified; Y99.8 Other external cause status; Y92.410 Unspecified street and highway as the place of occurrence of the external cause
CPT/HCPCS: 36415; 70450; 73030; 81025; 84702; 99285-25

== ENCOUNTER 2017-04-03 10:52 | Emergency (ER) | payer OTHER ==
[~2017-04-03] VITALS: Ht 157.5 cm; Wt 72.6 kg
[2017-04-03 11:15] VITALS: BP 120/74
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
[2017-04-03] MEDS ORDERED: KETOROLAC 60 MG/2 ML INJ. IM ONE (11:30)
[2017-04-03] MEDS ORDERED: PROCHLORPERAZINE 10 MG/2 ML VIAL. IM ONE (11:30)
[2017-04-03] MEDS ORDERED: ACETAMINOPHEN 500 MG TABLET PO ONE (11:30)
--- NOTE | 2017-04-03 13:11 | RAD ---
CT HEAD WITHOUT [id number]/16/2017 1:18 PM Indication: headaches after head injury Comparison: CT of the head without contrast March 10, 2017 Procedure: Multidetector CT imaging of the head was performed without the administration of contrast. Findings: There is no evidence of acute intracranial hemorrhage. There is no evidence of acute territorial infarction. Please note that CT is limited for evaluation of acute ischemia. No mass effect or midline shift is identified . The ventricles and basilar cisterns have an appropriate appearance. No abnormal extra-axial fluid collections are seen. No acute osseous changes are identified. Bubbly secretions are noted within the sphenoid sinus, increased from prior study. Correlate with clinical evidence of ongoing sinusitis. Impression: 1.No evidence of acute intracranial abnormality 2. Persistent secretions in the sphenoid sinus. Correlate with evidence of persistent sinusitis PQRS Compliance Statement: One or more of the following individualized dose reduction techniques were utilized for this examination: 1. Automated exposure control 2. Adjustment of the mA and/or kV according to patient size 3. Use of iterative reconstruction technique
[2017-04-03] MEDS ORDERED: DEXAMETHASONE 4 MG TABLET PO ONE (13:15)
[2017-04-03] MEDS ORDERED: NAPR500T PO (13:17)
[2017-04-03] MEDS ORDERED: PROC10TA57 PO (13:17)
[2017-04-04] MEDS ORDERED: DEXAMETHASONE 4 MG TABLET PO SCH (08:00)
== END 2017-04-03 13:30 | disposition home or self-care (01) ==
LOC: ER 10:52
DX: G44.309 Post-traumatic headache, unspecified, not intractable (principal); J45.909 Unspecified asthma, uncomplicated; Z88.0 Allergy status to penicillin; Z88.1 Allergy status to other antibiotic agents
CPT/HCPCS: 70450; 81025; 96372; 99284; J0780; J1885; J8540

== ENCOUNTER 2017-05-30 20:51 | Emergency (ER) | payer OTHER ==
[2017-05-30 21:13] LABS: URINE HCG POC HCG POSITIVE (Negative)
[2017-05-30 21:38] LABS: ADD MAN DIFF? NO
[2017-05-30 21:40] LABS: BASO % 0 % (0-3); EOS # 0.3 x10^3/uL (0.0-0.7); EOS % 5 % (0-3); HEMATOCRIT 39.4 % (36.0-47.0); HEMOGLOBIN 13.3 g/dL (12.0-15.5); LYMPH # 2.8 x10^3/uL (1.0-4.8); LYMPH % 46 % (24-48); MEAN CORPUSCULAR HEMOGLOBIN 32 pg (25-35); MEAN CORPUSCULAR HGB CONC 34 g/dL (31-37); MEAN CORPUSCULAR VOLUME 93 fL (79-100); MONO # 0.5 x10^3/uL (0.0-1.1); MONO % 8 % (0-9); NEUT # 2.5 x10^3uL (1.8-7.7); NEUT % 41 % (31-73); PLATELET COUNT 293 x10^3/uL (140-400); RED BLOOD COUNT 4.21 x10^6/uL (3.50-5.40); RED CELL DISTRIBUTION WIDTH 12.2 % (11.5-14.5); WHITE BLOOD COUNT 6.2 x10^3/uL (4.0-11.0)
[2017-05-30 21:41] LABS: BILIRUBIN,URINE NEGATIVE (NEG); CLARITY,URINE CLEAR; COLOR,URINE YELLOW; GLUCOSE,URINE NEGATIVE (NEG); NITRITE,URINE NEGATIVE (NEG); PROTEIN,URINE NEGATIVE (NEG-TRACE); UROBILINOGEN,URINE 0.2 mg/dL (0.2 mg/dL)
[2017-05-30 21:52] LABS: ANION GAP 11 (6-14); BACTERIA,URINE MODERATE /HPF (0-FEW); BLOOD UREA NITROGEN 15 mg/dL (7-20); BUN/CREATININE RATIO 25 (6-20); CALCIUM 9.2 mg/dL (8.5-10.1); CARBON DIOXIDE 25 mmol/L (21-32); CHLORIDE 105 mmol/L (98-107); CREATININE 0.6 mg/dL (0.6-1.0); GFR 145.1; GLUCOSE 97 mg/dL (70-99); POTASSIUM 3.7 mmol/L (3.5-5.1); RBC,URINE 0 /HPF (0-2); SODIUM 141 mmol/L (136-145); SQUAMOUS EPITHELIAL CELL,UR MANY /LPF
[2017-05-30 21:58] LABS: ALBUMIN 3.9 g/dL (3.4-5.0); ALBUMIN/GLOBULIN RATIO 1.2 (1.0-1.7); ALK PHOS 50 U/L (46-116); ALT (SGPT) 22 U/L (14-59); AST (SGOT) 13 U/L (15-37); LIPASE 468 U/L (73-393); TOTAL BILIRUBIN 0.1 mg/dL (0.2-1.0); TOTAL PROTEIN 7.1 g/dL (6.4-8.2)
[2017-05-30] MEDS: ONDANSETRON PF 4 MG/2 ML VIAL. IV (22:17)
[2017-05-30] MEDS: IV NORMAL SALINE 1000ML BAG 1,000 ML IV (22:18)
[2017-05-30] MEDS: fentaNYL PF VIAL 100 MCG/2 ML VIAL IV (22:18)
[2017-06-02 19:16] LABS: CHLAMYDIA PROBE Negative (Negative); GC PROBE Negative (Negative)
== END 2017-05-30 23:49 | disposition home or self-care (01) ==
LOC: ER 20:51
DX: O26.891 Other specified pregnancy related conditions, first trimester (principal); R10.2 Pelvic and perineal pain; R11.0 Nausea; O23.591 Infection of other part of genital tract in pregnancy, first trimester; N76.0 Acute vaginitis; F12.10 Cannabis abuse, uncomplicated; F17.210 Nicotine dependence, cigarettes, uncomplicated; Z3A.00 Weeks of gestation of pregnancy not specified; Z88.0 Allergy status to penicillin; Z88.1 Allergy status to other antibiotic agents
CPT/HCPCS: 36415; 76801; 76817; 80053; 81001; 81025; 83690; 83735; 84702; 85025; 87086; 87491; 87591; 99285-25; J2405; J3010; J7030; Q0111

== ENCOUNTER 2017-11-25 12:15 | Emergency (ER) | payer SELFPAY, OTHER ==
[2017-11-25 12:45] LABS: URINE HCG POC HCG NEGATIVE (Negative)
[2017-11-25 13:07] LABS: ADD MAN DIFF? NO
[2017-11-25 13:11] LABS: BASO % 1 % (0-3); EOS # 0.2 x10^3/uL (0.0-0.7); EOS % 5 % (0-3); HEMATOCRIT 37.8 % (36.0-47.0); HEMOGLOBIN 12.9 g/dL (12.0-15.5); LYMPH # 1.7 x10^3/uL (1.0-4.8); LYMPH % 37 % (24-48); MEAN CORPUSCULAR HEMOGLOBIN 32 pg (25-35); MEAN CORPUSCULAR HGB CONC 34 g/dL (31-37); MEAN CORPUSCULAR VOLUME 93 fL (79-100); MONO # 0.4 x10^3/uL (0.0-1.1); MONO % 9 % (0-9); NEUT # 2.2 x10^3uL (1.8-7.7); NEUT % 48 % (31-73); PLATELET COUNT 247 x10^3/uL (140-400); RED BLOOD COUNT 4.09 x10^6/uL (3.50-5.40); RED CELL DISTRIBUTION WIDTH 12.9 % (11.5-14.5); WHITE BLOOD COUNT 4.5 x10^3/uL (4.0-11.0)
[2017-11-25 13:13] LABS: BILIRUBIN,URINE NEGATIVE (NEG); CLARITY,URINE CLEAR; COLOR,URINE YELLOW; GLUCOSE,URINE NEGATIVE (NEG); NITRITE,URINE POSITIVE (NEG); PROTEIN,URINE NEGATIVE (NEG-TRACE)
[2017-11-25] MEDS: IV NORMAL SALINE 1000ML BAG 1,000 ML IV (13:15)
[2017-11-25] MEDS: ONDANSETRON PF 4 MG/2 ML VIAL. IV (13:16)
[2017-11-25] MEDS: PANTOPRAZOLE IV PUSH 40 MG VIAL. IVP (13:17)
[2017-11-25 13:24] LABS: ANION GAP 6 (6-14); BLOOD UREA NITROGEN 18 mg/dL (7-20); BUN/CREATININE RATIO 23 (6-20); CALCIUM 8.5 mg/dL (8.5-10.1); CARBON DIOXIDE 29 mmol/L (21-32); CHLORIDE 105 mmol/L (98-107); CREATININE 0.8 mg/dL (0.6-1.0); GFR 103.3; GLUCOSE 87 mg/dL (70-99); NEG OBC SER NEG; POS OBC SER POS; POTASSIUM 4.1 mmol/L (3.5-5.1); PREG TEST PT QUAL NEGATIVE (NEG); SODIUM 140 mmol/L (136-145)
[2017-11-25 13:26] LABS: SQUAMOUS EPITHELIAL CELL,UR MANY /LPF
[2017-11-25 13:27] LABS: BACTERIA,URINE FEW /HPF (0-FEW); RBC,URINE 0 /HPF (0-2); WBC,URINE OCC /HPF (0-4)
[2017-11-25 13:31] LABS: ALBUMIN 3.7 g/dL (3.4-5.0); ALBUMIN/GLOBULIN RATIO 1.1 (1.0-1.7); ALK PHOS 52 U/L (46-116); ALT (SGPT) 30 U/L (14-59); AST (SGOT) 16 U/L (15-37); LIPASE 321 U/L (73-393); TOTAL BILIRUBIN 0.2 mg/dL (0.2-1.0); TOTAL PROTEIN 7.1 g/dL (6.4-8.2)
[2017-11-25] MEDS ORDERED: CONTRAST GIVEN. MC (14:00)
[2017-11-25] MEDS ORDERED: IOHEXOL 300 MG/ML 100ML VIAL. IV (14:00)
== END 2017-11-25 14:33 | disposition home or self-care (01) ==
LOC: ER 12:15
DX: N39.0 Urinary tract infection, site not specified (principal); M25.562 Pain in left knee; Z88.0 Allergy status to penicillin; Z88.1 Allergy status to other antibiotic agents
CPT/HCPCS: 36415; 80053; 81001; 81025; 83690; 84703; 85025; 87086; 96361; 96374; 96375; 99284; C9113; J2405; J7030

== ENCOUNTER 2018-03-27 20:03 | Emergency (ER) | payer SELFPAY ==
[~2018-03-27] VITALS: Ht 157.5 cm; Wt 72.6 kg
[~2018-03-27 20:03] MED LIST changes: +CIPR500T94 PO; +NAPR-683 PO; +ONDA4TAB10 PO; +PROC10TA57 PO
[2018-03-27 20:25] LABS: BILIRUBIN,URINE NEGATIVE (NEG); CLARITY,URINE CLEAR; COLOR,URINE YELLOW; NITRITE,URINE NEGATIVE (NEG); PROTEIN,URINE NEGATIVE (NEG-TRACE); UROBILINOGEN,URINE 0.2 mg/dL (0.2 mg/dL)
--- NOTE | 2018-03-27 20:28 | PHYS DOC ---
Past Medical History Past Medical History: No Pertinent History Past Surgical History: Additional Past Surgical Histo: D&C Alcohol Use: Heavy Drug Use: Marijuana Adult General Chief Complaint Chief Complaint: ABDOMINAL PAIN HPI HPI Patient is a 27-year-old female who presents with complaint of right lower abdominal pain that started 3-4 days ago. She describes pain as being sharp and stabbing in nature and states the pain is worsened with movement and palpation. She rates the pain at a 7.5 out of 10. She indicates that she has had no anorexia, nausea or vomiting. She also denies any fever. Patient states that nothing seems to improve the pain. She does indicate that she could possibly be but does not believe so. 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 She denies any chest pain or shortness of breath. Review of Systems Review of Systems Constitutional: Denies fever or chills [] Respiratory: Denies cough or shortness of breath [] Cardiovascular: No additional information not addressed in HPI [] GI: Complains of right lower abdominal pain without nausea, vomiting or diarrhea [] : Denies dysuria or hematuria [] Musculoskeletal: Denies back pain or joint pain [] All other systems were reviewed and found to be within normal limits, except as documented in this note. Current Medications Current Medications Current Medications Medications (Trade) Dose Ordered Sig/Augustin Start Time Stop Time Status Last Admin Dose Admin Acetaminophen (Tylenol) 1,000 mg 1X ONCE 03/27/18 21:00 03/27/18 21:01 DC 03/27/18 20:59 1,000 MG Azithromycin (Zithromax) 1,000 mg 1X ONCE 03/27/18 22:15 03/27/18 22:16 03/27/18 22:08 1,000 MG Ceftriaxone Sodium (Rocephin Im) 250 mg 1X ONCE 03/27/18 22:15 03/27/18 22:16 03/27/18 22:08 250 MG Ketorolac Tromethamine (Toradol 30mg Vial) 30 mg 1X ONCE 03/27/18 20:30 03/27/18 20:31 DC Sodium Chloride 1,000 ml @ 1,000 mls/hr Q1H 03/27/18 20:30 03/27/18 21:29 DC 03/27/18 20:33 1,000 MLS/HR Allergies Allergies Allergies Coded Allergies Type Severity Reaction Last Updated Verified Penicillins Allergy Intermediate rash, hives 10/09/15 Yes amoxicillin Allergy Intermediate rash, hives 10/09/15 Yes Physical Exam Physical Exam Constitutional: Well developed, well nourished, no acute distress, non-toxic appearance. [] HENT: Normocephalic, atraumatic, bilateral external ears normal, oropharynx moist, no oral exudates, nose normal. [] Eyes: PERRLA, EOMI, conjunctiva normal, no discharge. [] Neck: Normal range of motion, no tenderness, supple, no stridor. [] Cardiovascular:Heart rate regular rhythm, no murmur [] Lungs & Thorax: Bilateral breath sounds clear to auscultation [] Abdomen: Bowel sounds normal, soft, with moderate right lower quadrant tenderness. [] Skin: Warm, dry, no erythema, no rash. [] Extremities: No tenderness, no cyanosis, no clubbing, ROM intact, no edema. [] Neurologic: Alert and oriented X 3, normal motor function, normal sensory function, no focal deficits noted. [] Current Patient Data Vital Signs Vital Signs Date Time Temp Pulse Resp B/P (MAP) Pulse Ox O2 Delivery O2 Flow Rate FiO2 03/27/18 20:08 97.9 87 16 118/71 (87) 99 Room Air 97.9 Lab Values Laboratory Tests Test 03/27/18 20:10 03/27/18 20:15 03/27/18 20:25 Urine Collection Type Unknown Urine Color Yellow Urine Clarity Clear Urine pH 6.0 Urine Specific Boswell 1.025 Urine Protein Negative mg/dL (NEG-TRACE) Urine Glucose (UA) Negative mg/dL (NEG) Urine Ketones (Stick) Negative mg/dL (NEG) Urine Blood Negative (NEG) Urine Nitrite Negative (NEG) Urine Bilirubin Negative (NEG) Urine Urobilinogen Dipstick 0.2 mg/dL (0.2 mg/dL) Urine Leukocyte Esterase Small (NEG) Urine RBC Rare /HPF (0-2) Urine WBC 5-10 /HPF (0-4) Urine Squamous Epithelial Cells Many /LPF Urine Bacteria Few /HPF (0-FEW) Urine Mucus Mod /LPF Urine Trichomonas Present POC Urine HCG, Qualitative Hcg positive (Negative) White Blood Count 6.1 x10^3/uL (4.0-11.0) Red Blood Count 4.23 x10^6/uL (3.50-5.40) Hemoglobin 13.8 g/dL (12.0-15.5) Hematocrit 39.8 % (36.0-47.0) Mean Corpuscular Volume 94 fL (79-100) Mean Corpuscular Hemoglobin 33 pg (25-35) Mean Corpuscular Hemoglobin Concent 35 g/dL (31-37) Red Cell Distribution Width 12.3 % (11.5-14.5) Platelet Count 300 x10^3/uL (140-400) Neutrophils (%) (Auto) 53 % (31-73) Lymphocytes (%) (Auto) 32 % (24-48) Monocytes (%) (Auto) 12 % (0-9) H Eosinophils (%) (Auto) 3 % (0-3) Basophils (%) (Auto) 1 % (0-3) Neutrophils # (Auto) 3.2 x10^3uL (1.8-7.7) Lymphocytes # (Auto) 1.9 x10^3/uL (1.0-4.8) Monocytes # (Auto) 0.7 x10^3/uL (0.0-1.1) Eosinophils # (Auto) 0.2 x10^3/uL (0.0-0.7) Basophils # (Auto) 0.0 x10^3/uL (0.0-0.2) Maternal Serum HCG Beta Subunit 2896 mIU/mL (0-5) H Sodium Level 138 mmol/L (136-145) Potassium Level 4.1 mmol/L (3.5-5.1) Chloride Level 102 mmol/L (98-107) Carbon Dioxide Level 23 mmol/L (21-32) Anion Gap 13 (6-14) Blood Urea Nitrogen 13 mg/dL (7-20) Creatinine 0.6 mg/dL (0.6-1.0) Estimated GFR (Cockcroft-Gault) 144.0 BUN/Creatinine Ratio 22 (6-20) H Glucose Level 90 mg/dL (70-99) Calcium Level 9.6 mg/dL (8.5-10.1) Total Bilirubin 0.1 mg/dL (0.2-1.0) L Aspartate Amino Transferase (AST) 13 U/L (15-37) L Alanine Aminotransferase (ALT) 20 U/L (14-59) Alkaline Phosphatase 44 U/L (46-116) L Total Protein 7.2 g/dL (6.4-8.2) Albumin 3.9 g/dL (3.4-5.0) Albumin/Globulin Ratio 1.2 (1.0-1.7) Laboratory Tests 03/27/18 20:25 Laboratory Tests 03/27/18 20:25 EKG EKG [] Radiology/Procedures Radiology/Procedures [] Course & Med Decision Making Course & Med Decision Making Pertinent Labs and Imaging studies reviewed. (See chart for details) [] Dragon Disclaimer Dragon Disclaimer This electronic medical record was generated, in whole or in part, using a voice recognition dictation system. Departure Departure Impression: Primary Impression: Pelvic pain during in first trimester, antepartum Additional Impression: Trichomonas vaginalis infection Disposition: 01 HOME, SELF-CARE Condition: STABLE Referrals: NO PCP (PCP) Patient Instructions: Abdominal Pain During , Trichomoniasis Scripts Metronidazole (METRONIDAZOLE) 500 Mg Tablet 1 TAB PO BID, #14 TAB Prov: RENETTA GONZALEZ Jr. DO 03/27/18 Problem Qualifiers RENETTA GONZALEZ Jr. DO Mar 27, 2018 20:28
[2018-03-27] MEDS ORDERED: IV NORMAL SALINE 1000ML BAG 1,000 ML IV SCH (20:30)
[2018-03-27] MEDS ORDERED: KETOROLAC 30 MG/ML VIAL. IV ONE (20:30)
[2018-03-27 20:32] LABS: BASO % 1 % (0-3); EOS # 0.2 x10^3/uL (0.0-0.7); EOS % 3 % (0-3); HEMATOCRIT 39.8 % (36.0-47.0); HEMOGLOBIN 13.8 g/dL (12.0-15.5); LYMPH # 1.9 x10^3/uL (1.0-4.8); LYMPH % 32 % (24-48); MEAN CORPUSCULAR HEMOGLOBIN 33 pg (25-35); MEAN CORPUSCULAR HGB CONC 35 g/dL (31-37); MEAN CORPUSCULAR VOLUME 94 fL (79-100); MONO # 0.7 x10^3/uL (0.0-1.1); MONO % 12 % (0-9); NEUT # 3.2 x10^3uL (1.8-7.7); NEUT % 53 % (31-73); PLATELET COUNT 300 x10^3/uL (140-400); RED BLOOD COUNT 4.23 x10^6/uL (3.50-5.40); RED CELL DISTRIBUTION WIDTH 12.3 % (11.5-14.5); WHITE BLOOD COUNT 6.1 x10^3/uL (4.0-11.0)
[2018-03-27 20:32] LABS: BACTERIA,URINE FEW /HPF (0-FEW); RBC,URINE RARE /HPF (0-2); SQUAMOUS EPITHELIAL CELL,UR MANY /LPF; TRICHOMONAS,URINE PRESENT
[2018-03-27 20:39] LABS: CALCIUM 9.6 mg/dL (8.5-10.1); CREATININE 0.6 mg/dL (0.6-1.0); POTASSIUM 4.1 mmol/L (3.5-5.1)
[2018-03-27 20:46] LABS: ALBUMIN 3.9 g/dL (3.4-5.0); ALBUMIN/GLOBULIN RATIO 1.2 (1.0-1.7); TOTAL BILIRUBIN 0.1 mg/dL (0.2-1.0); TOTAL PROTEIN 7.2 g/dL (6.4-8.2)
[2018-03-27] MEDS ORDERED: ACETAMINOPHEN 500 MG TABLET PO ONE (21:00)
--- NOTE | 2018-03-27 21:22 | RAD ---
EXAM: Obstetrics sonogram. HISTORY: Right lower quadrant pain. TECHNIQUE: Sonographic imaging of the pelvis was performed. COMPARISON: None. FINDINGS: The uterus measures 8.1 x 4.7 x 4.9 cm. The endometrial stripe measures 1.1 cm in thickness. There is a small fluid collection with suspected surrounding decidual reaction within the endometrial cavity measuring likely a early gestational sac. The mean sac diameter corresponds with a gestational age of 5 weeks and 2 days. No yolk sac is seen. There are echogenic foci within the gestational sac which may be due to artifact from the sac wall. There is a 1.7 cm left corpus luteum cyst. There is normal blood flow within both ovaries. There is no pelvic free fluid. IMPRESSION: 1. Small fluid collection within the endometrial cavity with suspected surrounding decidual reaction. This may be an early gestational sac. No yolk sac or pole seen. There is no beta-hCG level at the time of dictation for correlation. Correlate with the beta hCG level. Short-term sonographic follow-up can be performed to confirm viability and exclude a pseudosac in the setting of ectopic gestation. 2. 1.7 cm left corpus luteum cyst. Electronically signed by: Crystal Deleon MD (03/27/2018 9:19 PM) [facility]
[2018-03-27] MEDS ORDERED: cefTRIAXone IM 250 MG VIAL IM ONE (22:15)
[2018-03-27] MEDS ORDERED: AZITHROMYCIN 250 MG TABLET. PO ONE (22:15)
[2018-03-27] MEDS ORDERED: METR500T8 PO (22:17)
[2018-03-27 22:28] VITALS: BP 107/66
== END 2018-03-27 22:34 | disposition home or self-care (01) ==
LOC: ER 20:03
DX: O98.311 Other infections with a predominantly sexual mode of transmission complicating pregnancy, first trimester (principal); A59.01 Trichomonal vulvovaginitis; R10.2 Pelvic and perineal pain; R10.31 Right lower quadrant pain; O99.311 Alcohol use complicating pregnancy, first trimester; F10.20 Alcohol dependence, uncomplicated; Y90.9 Presence of alcohol in blood, level not specified; Z88.0 Allergy status to penicillin; Z88.1 Allergy status to other antibiotic agents; Z3A.01 Less than 8 weeks gestation of pregnancy
CPT/HCPCS: 36415; 76801; 76817; 80053; 81001; 81025; 84702; 85025; 96372; 99285; J0696; J7030; Q0144; 87086; 87491; 87591

== ENCOUNTER 2018-05-27 18:07 | Emergency (ER) | payer SELFPAY ==
[2018-04-26 14:00] VITALS: BP 114/63
[~2018-05-27] VITALS: Ht 167.6 cm; Wt 72.6 kg
[~2018-05-27 18:07] MED LIST changes: +CEPH-264 PO; +METR-34 PO; +METR500T PO; +ONDA4TAB12 PO; +PREN1TAB58 PO
[2018-05-27] MEDS ORDERED: CLINDAMYCIN HCL 150 MG CAPSULE. PO ONE (18:30)
[2018-05-27] MEDS ORDERED: ACETAMINOPHEN 500 MG TABLET PO ONE (18:30)
[2018-05-27] MEDS ORDERED: ONDANSETRON ODT 4 MG TAB.RAPDIS. PO ONE (18:30)
[2018-05-27] MEDS ORDERED: CLIN300C8 PO (18:36)
[2018-05-27] MEDS ORDERED: HYDR-3164 PO (18:36)
--- NOTE | 2018-05-27 18:36 | PHYS DOC ---
Past Medical History Past Medical History: No Pertinent History Additional Past Medical Histor: miscarriage Past Surgical History: No Surgical History Additional Past Surgical Histo: D&C Alcohol Use: None Drug Use: None Adult General Chief Complaint Chief Complaint: DENTAL PROBLEM HPI HPI Patient is a 27 year old female 3 para 2 currently 12 weeks presenting to the ED today complaining of 10 out of 10 right sided dental pain that has been going on since this morning. Patient states she does not have a dentist. Follows up with her OB. Review of Systems Review of Systems Constitutional: Denies fever or chills [] Eyes: Denies change in visual acuity, redness, or eye pain [] HENT: Reports dental pain. Denies nasal congestion or sore throat [] Respiratory: Denies cough or shortness of breath [] Cardiovascular: No additional information not addressed in HPI [] GI: Reports . Denies abdominal pain, nausea, vomiting, bloody stools or diarrhea [] : Denies dysuria or hematuria [] Musculoskeletal: Denies back pain or joint pain [] Integument: Denies rash or skin lesions [] Neurologic: Denies headache, focal weakness or sensory changes [] All other systems were reviewed and found to be within normal limits, except as documented in this note. Allergies Allergies Allergies Coded Allergies Type Severity Reaction Last Updated Verified Penicillins Allergy Intermediate rash, hives 10/09/15 Yes amoxicillin Allergy Intermediate rash, hives 10/09/15 Yes Physical Exam Physical Exam Constitutional: Well developed, well nourished, no acute distress, non-toxic appearance. [] HENT: Normocephalic, atraumatic, bilateral external ears normal, oropharynx moist, no oral exudates, nose normal. Tooth #29 appears decayed and broken. Scattered dental caries throughout. No gum erythema or abscess. Eyes: PERRLA, EOMI, conjunctiva normal, no discharge. [] Neck: Normal range of motion, no tenderness, supple, no stridor. [] Cardiovascular:Heart rate regular rhythm, no murmur [] Lungs & Thorax: Bilateral breath sounds clear to auscultation [] Abdomen: Bowel sounds normal, soft, no tenderness, no masses, no pulsatile masses. [] Skin: Warm, dry, no erythema, no rash. [] Back: No tenderness, no CVA tenderness. [] Extremities: No tenderness, no cyanosis, no clubbing, ROM intact, no edema. [] Neurologic: Alert and oriented X 3, normal motor function, normal sensory function, no focal deficits noted. [] Psychologic: Affect normal, judgement normal, mood normal. [] Current Patient Data Vital Signs Vital Signs Date Time Temp Pulse Resp B/P (MAP) Pulse Ox O2 Delivery O2 Flow Rate FiO2 05/27/18 18:16 98.7 92 18 130/76 (94) 97 Room Air 98.7 EKG EKG [] Radiology/Procedures Radiology/Procedures [] Course & Med Decision Making Course & Med Decision Making Pertinent Labs and Imaging studies reviewed. (See chart for details) This is a 27-year-old female patient presenting to the ED today with dental pain. Currently 12 weeks . Discharged with clindamycin. She is allergic to penicillin not amoxicillin. Follow-up with the dentist and [facility] in 1-2 weeks. Dragon Disclaimer Dragon Disclaimer This electronic medical record was generated, in whole or in part, using a voice recognition dictation system. Departure Departure Impression: Primary Impression: Dentalgia Additional Impression: Infected dental caries Disposition: 01 HOME, SELF-CARE Condition: STABLE Referrals: NO PCP (PCP) Follow-up with your dentist and [facility] in 1-2 weeks Patient Instructions: Dental Caries, Dental Pain Additional Instructions: You were evaluated in the emergency room for dental infection. Take the prescribed antibiotics until completed. Please establish care with a dentist and follow-up. Also follow-up with your [facility]. Scripts Clindamycin Hcl (CLINDAMYCIN HCL) 300 Mg Capsule 1 CAP PO TID, #21 CAP Prov: ASTRID VEE APRN 05/27/18 Hydrocodone/Apap 5-325 (NORCO 5-325 TABLET) 1 Each Tablet 1 TAB PO Q6HRS, #12 TAB Prov: ASTRID VEE APRN 05/27/18 Problem Qualifiers ASTRID VEE APRN May 27, 2018 18:36
[2018-11-13] MEDS ORDERED: HYDR-3164 PO (14:45)
[2018-11-13] MEDS ORDERED: NAPR-683 PO (14:45)
== END 2018-05-27 19:13 | disposition home or self-care (01) ==
LOC: ER 18:07
DX: O99.611 Diseases of the digestive system complicating pregnancy, first trimester (principal); K02.9 Dental caries, unspecified; Z88.0 Allergy status to penicillin; Z88.1 Allergy status to other antibiotic agents; Z3A.12 12 weeks gestation of pregnancy
CPT/HCPCS: 99284; Q0162

== ENCOUNTER 2018-06-28 14:22 | Emergency (ER) | payer OTHER ==
[2018-05-27 18:16] VITALS: BP 130/76
[~2018-06-28] VITALS: Ht 167.6 cm; Wt 72.6 kg
[~2018-06-28 14:22] MED LIST changes: +CLIN300C8 PO; +HYDR-3164 PO
--- NOTE | 2018-06-28 15:35 | PHYS DOC ---
Past Medical History Past Medical History: No Pertinent History Additional Past Medical Histor: miscarriage Past Surgical History: No Surgical History Additional Past Surgical Histo: D&C Alcohol Use: None Drug Use: None Adult General Chief Complaint Chief Complaint: VAGINAL BLEEDING [facility] Patient is a 27 year old female who presents with complaints of vaginal spotting in with some pelvic cramping to the left side. The patient does not have an principal technical specialist and has not been receiving any care. She states that she had one visit at 2 months with [facility]. She denies dysuria or back pain. Review of Systems Review of Systems Constitutional: Denies fever or chills [] Eyes: Denies change in visual acuity, redness, or eye pain [] HENT: Denies nasal congestion or sore throat [] Respiratory: Denies cough or shortness of breath [] Cardiovascular: No additional information not addressed in [facility] [] GI: See history of present illness : Denies dysuria or hematuria [] Musculoskeletal: Denies back pain or joint pain [] Integument: Denies rash or skin lesions [] Neurologic: Denies headache, focal weakness or sensory changes [] Endocrine: Denies polyuria or polydipsia [] All other systems were reviewed and found to be within normal limits, except as documented in this note. Allergies Allergies Allergies Coded Allergies Type Severity Reaction Last Updated Verified Penicillins Allergy Intermediate rash, hives 10/09/15 Yes amoxicillin Allergy Intermediate rash, hives 10/09/15 Yes Physical Exam Physical Exam The patient eloped from the emergency department before an exam could be performed. Current Patient Data Vital Signs Vital Signs Date Time Temp Pulse Resp B/P (MAP) Pulse Ox O2 Delivery O2 Flow Rate FiO2 06/28/18 14:36 98.8 108 19 112/56 (74) 98 Room Air 98.8 EKG EKG [] Radiology/Procedures Radiology/Procedures [] Course & Med Decision Making Course & Med Decision Making Pertinent Labs and Imaging studies reviewed. (See chart for details) []The patient eloped from the emergency department. Dragon Disclaimer Dragon Disclaimer This electronic medical record was generated, in whole or in part, using a voice recognition dictation system. Departure Departure Impression: Primary Impression: Eloped from emergency department Disposition: 07 AGAINST MEDICAL ADVICE Referrals: NO PCP (PCP) VICTORIA MORA APRN Jun 28, 2018 15:34
[2018-11-13] MEDS ORDERED: NAPR-683 PO (14:45)
[2018-11-13] MEDS ORDERED: HYDR-3164 PO (14:45)
== END 2018-06-28 15:25 | disposition left against medical advice (07) ==
LOC: ER 14:22
DX: O46.92 Antepartum hemorrhage, unspecified, second trimester (principal); Z3A.19 19 weeks gestation of pregnancy; Z88.0 Allergy status to penicillin; Z88.1 Allergy status to other antibiotic agents

== ENCOUNTER 2018-08-16 13:39 | Observation (INO) | payer OTHER ==
[2018-06-28 14:36] VITALS: BP 112/56
[2018-08-16] MEDS ORDERED: IV RINGERS,LACTATED 1000ML 1,000 ML IV SCH (14:29)
[2018-08-16 15:02] LABS: BILIRUBIN,URINE NEGATIVE (NEG); CLARITY,URINE CLEAR; COLOR,URINE YELLOW; NITRITE,URINE NEGATIVE (NEG); PH,URINE 6.5; PROTEIN,URINE NEGATIVE (NEG-TRACE); UROBILINOGEN,URINE 0.2 mg/dL (0.2 mg/dL)
[2018-08-16 15:09] LABS: AMPHETAMINE/METHAMPHETAMINE NEG (NEG); BARBITURATES NEG (NEG); BENZODIAZEPINES NEG (NEG); CANNABINOIDS POS (NEG); COCAINE NEG (NEG); METHADONE NEG (NEG); OPIATES NEG (NEG); PHENCYCLIDINE NEG (NEG)
[2018-08-16 15:10] LABS: BACTERIA,URINE MANY /HPF (0-FEW); RBC,URINE 0 /HPF (0-2); SQUAMOUS EPITHELIAL CELL,UR MOD /LPF; WBC,URINE OCC /HPF (0-4)
--- NOTE | 2018-08-16 16:12 | RAD ---
Obstetric ultrasound greater than 14 weeks: Reason for examination: Fell down the stairs. No vaginal bleeding. Transabdominal ultrasound was performed. There is a single viable intrauterine gestation present which appears to be in cephalic presentation. Cervix is closed and measures 4.1 cm in length. The placenta is located anteriorly with no previa or abruption seen. Adequate amniotic fluid appears be present with a amniotic fluid index of 18.1 cm. motion and cardiac activity are present with a cardiac rate of 163 bpm. Biparietal diameter is 6.43 cm corresponding to gestational age of 26 weeks 0 days. Head circumference is 23.82 cm corresponding to gestational age of 25 weeks 6 days. Abdominal circumference is 20.74 cm corresponding to gestational age of 25 weeks 2 days. Femur length is 4.70 cm corresponding to gestational age of 25 weeks 5 days. Head circumference to abdominal circumference ratio is 1.15. Estimated weight is 821 grams. Estimated gestational age by ultrasound is 25 weeks 5 days with estimated date of confinement of 11/24/2018. IMPRESSION: Single viable intrauterine gestation with a mean gestational age estimated at 25 weeks 5 days and estimated date of confinement of 11/24/2018. Estimated weight 821 grams. No gross abnormalities evident. Electronically signed by: Verenice Mccray MD (08/16/2018 4:09 PM) [facility]
== END 2018-08-16 16:08 | disposition home or self-care (01) ==
LOC: 3 SO LND 13:39
PROVIDERS: ADMIT Specialist; ATTEND Specialist
DX: O26.892 Other specified pregnancy related conditions, second trimester (principal); R10.9 Unspecified abdominal pain; Z3A.26 26 weeks gestation of pregnancy
CPT/HCPCS: 76805; 80307; 81001; 87086; G0378; G0379

== ENCOUNTER 2018-08-29 17:37 | Observation (INO) | payer OTHER ==
[2018-06-28 14:36] VITALS: BP 112/56
[2018-08-29] MEDS ORDERED: IV RINGERS,LACTATED 1000ML 1,000 ML IV SCH (17:49)
[2018-08-29 18:19] LABS: BILIRUBIN,URINE NEGATIVE (NEG); CLARITY,URINE CLOUDY; COLOR,URINE YELLOW; NITRITE,URINE NEGATIVE (NEG); PH,URINE 6.5; PROTEIN,URINE NEGATIVE (NEG-TRACE); UROBILINOGEN,URINE 0.2 mg/dL (0.2 mg/dL)
[2018-08-29] MEDS ORDERED: hydrOXYzine PAMOATE 25 MG CAPSULE PO ONE (18:30)
[2018-08-29 18:33] LABS: SQUAMOUS EPITHELIAL CELL,UR MANY /LPF
[2018-08-29 18:34] LABS: BACTERIA,URINE MANY /HPF (0-FEW)
== END 2018-08-29 19:00 | disposition home or self-care (01) ==
LOC: 3 SO LND 17:37
PROVIDERS: ADMIT Specialist; ATTEND Specialist
DX: O46.92 Antepartum hemorrhage, unspecified, second trimester (principal); O26.893 Other specified pregnancy related conditions, third trimester; R10.9 Unspecified abdominal pain; Z3A.27 27 weeks gestation of pregnancy
CPT/HCPCS: 81001; 87086; G0379; Q0177

== ENCOUNTER 2018-09-22 09:38 | Observation (INO) | payer OTHER ==
[2018-06-28 14:36] VITALS: BP 112/56
[2018-09-22 10:13] LABS: BILIRUBIN,URINE NEGATIVE (NEG); CLARITY,URINE CLEAR; COLOR,URINE YELLOW; NITRITE,URINE NEGATIVE (NEG); PH,URINE 7.5; PROTEIN,URINE NEGATIVE (NEG-TRACE); UROBILINOGEN,URINE 0.2 mg/dL (0.2 mg/dL)
[2018-09-22 10:22] LABS: SQUAMOUS EPITHELIAL CELL,UR MANY /LPF
[2018-09-22 10:23] LABS: BACTERIA,URINE MANY /HPF (0-FEW); RBC,URINE OCC /HPF (0-2)
[2018-09-22 11:25] LABS: BASO % 0 % (0-3); EOS # 0.2 x10^3/uL (0.0-0.7); EOS % 3 % (0-3); HEMATOCRIT 30.9 % (36.0-47.0); HEMOGLOBIN 10.5 g/dL (12.0-15.5); LYMPH # 1.5 x10^3/uL (1.0-4.8); LYMPH % 31 % (24-48); MEAN CORPUSCULAR HEMOGLOBIN 31 pg (25-35); MEAN CORPUSCULAR HGB CONC 34 g/dL (31-37); MEAN CORPUSCULAR VOLUME 92 fL (79-100); MONO # 0.5 x10^3/uL (0.0-1.1); MONO % 11 % (0-9); NEUT # 2.7 x10^3uL (1.8-7.7); NEUT % 55 % (31-73); PLATELET COUNT 213 x10^3/uL (140-400); RED BLOOD COUNT 3.36 x10^6/uL (3.50-5.40); RED CELL DISTRIBUTION WIDTH 12.3 % (11.5-14.5); WHITE BLOOD COUNT 4.9 x10^3/uL (4.0-11.0)
== END 2018-09-22 12:23 | disposition home or self-care (01) ==
LOC: 3 SO LND 09:38
PROVIDERS: ADMIT Obstetrics & Gynecology; ATTEND Obstetrics & Gynecology
DX: O46.93 Antepartum hemorrhage, unspecified, third trimester (principal); O26.893 Other specified pregnancy related conditions, third trimester; R10.9 Unspecified abdominal pain; Z3A.30 30 weeks gestation of pregnancy
CPT/HCPCS: 36415; 81001; 85025; 87086; G0378; G0379

== ENCOUNTER 2018-11-06 18:22 | Observation (INO) | payer OTHER ==
[2018-06-28 14:36] VITALS: BP 112/56
[2018-11-06] MEDS ORDERED: BETAMET ACET&NA PHOS 30 MG/5 ML VIAL. IM SCH (20:00)
--- NOTE | 2018-11-06 20:41 | RAD ---
Obstetrical ultrasound limited. HISTORY: presentation, KEITH Ultrasound was used to evaluate the fetus. Placenta is anterior without previa. heart rate was 149 bpm. There is a normal amount of amniotic fluid with an KEITH of 13.2. Fetus appears breech with the head in the maternal right upper quadrant. Cervix was difficult to fully evaluate. There is not evidence of previa. IMPRESSION: 1. Breech position. 2. Normal amniotic fluid. Electronically signed by: Rito Mack MD (11/06/2018 8:38 PM) [facility]
== END 2018-11-06 20:15 | disposition home or self-care (01) ==
LOC: 3 SO LND 18:22
PROVIDERS: ADMIT Specialist; ATTEND Specialist
DX: O32.1XX0 Maternal care for breech presentation, not applicable or unspecified (principal); Z3A.36 36 weeks gestation of pregnancy
CPT/HCPCS: 76815; 96372; G0378; G0379; J0702

== ENCOUNTER 2019-05-10 13:16 | Emergency (ER) | payer OTHER ==
[~2019-05-10] VITALS: Ht 157.5 cm; Wt 72.6 kg
[2019-05-10 14:10] VITALS: BP 148/77
[2019-05-10] MEDS ORDERED: PRED50TA PO (14:44)
[2019-05-10] MEDS ORDERED: PROM5SYR2 PO (14:44)
[2019-05-10] MEDS ORDERED: ALBU2.5V8 IH (14:44)
--- NOTE | 2019-05-10 14:44 | PHYS DOC ---
Past Medical History Past Medical History: No Pertinent History Additional Past Medical Histor: miscarriage Past Surgical History: No Surgical History, Additional Past Surgical Histo: D&C Alcohol Use: None Drug Use: None Adult General Chief Complaint Chief Complaint: SORE THROAT HPI HPI Patient is a 28 year old female who presents to the ED today complaining of a productive cough, nasal congestion and sore throat for 3 days. Patient is in the ED with 2 other family members with the exact same complaint. Review of Systems Review of Systems Constitutional: Denies fever or chills [] Eyes: Denies change in visual acuity, redness, or eye pain [] HENT: Reports nasal congestion and sore throat [] Respiratory: Reports cough, denies shortness of breath [] Cardiovascular: No additional information not addressed in HPI [] GI: Denies abdominal pain, nausea, vomiting, bloody stools or diarrhea [] : Denies dysuria or hematuria [] Musculoskeletal: Denies back pain or joint pain [] Integument: Denies rash or skin lesions [] Neurologic: Denies headache, focal weakness or sensory changes [] All other systems were reviewed and found to be within normal limits, except as documented in this note. Allergies Allergies Allergies Coded Allergies Type Severity Reaction Last Updated Verified Penicillins Allergy Intermediate rash, hives 10/09/15 Yes amoxicillin Allergy Intermediate rash, hives 10/09/15 Yes Physical Exam Physical Exam Constitutional: Well developed, well nourished, no acute distress, non-toxic appearance. [] HENT: Normocephalic, atraumatic, bilateral external ears normal, oropharynx moist, no oral exudates, nose normal. [] Eyes: PERRLA, EOMI, conjunctiva normal, no discharge. [] Neck: Normal range of motion, no tenderness, supple, no stridor. [] Cardiovascular:Heart rate regular rhythm, no murmur [] Lungs & Thorax: Bilateral breath sounds clear to auscultation [] Abdomen: Bowel sounds normal, soft, no tenderness, no masses, no pulsatile masses. [] Skin: Warm, dry, no erythema, no rash. [] Back: No tenderness, no CVA tenderness. [] Extremities: No tenderness, no cyanosis, no clubbing, ROM intact, no edema. [] Neurologic: Alert and oriented X 3, normal motor function, normal sensory function, no focal deficits noted. [] Psychologic: Affect normal, judgement normal, mood normal. [] Current Patient Data Vital Signs Vital Signs Date Time Temp Pulse Resp B/P (MAP) Pulse Ox O2 Delivery O2 Flow Rate FiO2 05/10/19 14:10 98.4 85 20 148/77 (100) 97 Room Air 98.4 EKG EKG [] Radiology/Procedures Radiology/Procedures [] Course & Med Decision Making Course & Med Decision Making Pertinent Labs and Imaging studies reviewed. (See chart for details) This is a 28-year-old female patient with cough nasal congestion and a sore throat, symptoms for 3 days. Patient is in the ED with several family members with the same exact complaint she is discharged to home. Follow-up with PCP in 1-2 weeks. Dragon Disclaimer Dragon Disclaimer This electronic medical record was generated, in whole or in part, using a voice recognition dictation system. Departure Departure Impression: Primary Impression: Viral bronchitis Additional Impressions: Viral pharyngitis URI (upper respiratory infection) Disposition: HOME, SELF-CARE Condition: STABLE Referrals: THEODORA GROSSMAN MD (PCP) follow up in 1 week with your doctor Patient Instructions: Acute Bronchitis, Upper Respiratory Infection, Adult, [id number] Additional Instructions: You were evaluated in the emergency room for cough and nasal congestion and a sore throat. Take the prescribed medications as ordered. Follow-up with your own doctor in 1-2 weeks. Scripts Promethazine HCl/Codeine (Prometh-Codein 6.25-10 mg/5 ml) 5 Ml Syrup 5 ML PO Q6-8HRS PRN for cough MDD 30 Milliliter(s), #80 ML 0 Refills Prov: ASTRID VEE CHYRON OPERATOR 05/10/19 Prednisone (PREDNISONE) 50 Mg Tablet 1 TAB PO DAILY, #5 TAB Prov: MUTUNGA,ASTRID CHYRON OPERATOR 05/10/19 Albuterol Sulfate (Proair Hfa) 8.5 Gm Hfa.aer.ad 2 PUFF IH PRN Q4-6HRS PRN for wheezing for 21 Days, #1 INHALER 0 Refills Prov: MUTUNGAASTRID CHYRON OPERATOR 05/10/19 Problem Qualifiers Additional Impressions: URI (upper respiratory infection) URI type: unspecified URI Qualified Codes: J06.9 - Acute upper respiratory infection, unspecified MUTUNGA,ASTRID CHYRON OPERATOR May 10, 2019 14:44
== END 2019-05-10 15:00 | disposition home or self-care (01) ==
LOC: ER 13:16
DX: J20.8 Acute bronchitis due to other specified organisms (principal); J02.8 Acute pharyngitis due to other specified organisms; B97.89 Other viral agents as the cause of diseases classified elsewhere; Z88.0 Allergy status to penicillin; Z88.1 Allergy status to other antibiotic agents
CPT/HCPCS: 99283

== ENCOUNTER 2021-03-21 14:20 | Observation (INO) | payer MEDICAID ==
[~2021-03-21 14:20] MED LIST changes: +ALBU2.5V8 IH; +CLIN-94 PO; -CLIN300C8 PO; +CYCL10TA19 PO; -CYCL10TA2 PO; +NAPR-699 PO; -NAPR250T6 PO; +PRED50TA PO; +PROM5SYR2 PO
[2021-03-21] MEDS ORDERED: IV RINGERS,LACTATED 1000ML 1,000 ML IV SCH (15:15)
[2021-03-21] MEDS ORDERED: FAMO-63 PO (15:22)
[2021-03-21] MEDS ORDERED: PROM25TA10 PO (15:24)
== END 2021-03-21 15:30 | disposition home or self-care (01) ==
LOC: 3 SO LND 14:20
PROVIDERS: ADMIT Obstetrics & Gynecology; ATTEND Obstetrics & Gynecology
DX: O62.9 Abnormality of forces of labor, unspecified (principal); O26.852 Spotting complicating pregnancy, second trimester; O99.891 Other specified diseases and conditions complicating pregnancy; M54.9 Dorsalgia, unspecified; Z3A.21 21 weeks gestation of pregnancy
CPT/HCPCS: 59025; G0379

== ENCOUNTER 2021-08-26 14:20 | Inpatient (IN) | payer MEDICAID ==
[~2021-08-26] VITALS: Ht 157.5 cm; Wt 89.0 kg
[~2021-08-26 14:20] MED LIST changes: +FAMO-63 PO; +PROM25TA10 PO
[2021-08-26] MEDS ORDERED: IV RINGERS,LACTATED 1000ML 1,000 ML IV PRN (14:45)
[2021-08-26 15:15] LABS: AMNIO PT NEGATIVE
[2021-08-26 15:16] LABS: BACTERIA,URINE MANY /HPF (0-FEW); RBC,URINE 0 /HPF (0-2); WBC,URINE 0 /HPF (0-4)
[2021-08-26 15:54] LABS: BASO % 0 % (0-3); EOS # 0.1 x10^3/uL (0.0-0.7); EOS % 2 % (0-3); HEMATOCRIT 31.5 % (36.0-47.0); HEMOGLOBIN 10.8 g/dL (12.0-15.5); LYMPH # 1.4 x10^3/uL (1.0-4.8); LYMPH % 21 % (24-48); MEAN CORPUSCULAR HEMOGLOBIN 30 pg (25-35); MEAN CORPUSCULAR HGB CONC 34 g/dL (31-37); MEAN CORPUSCULAR VOLUME 88 fL (79-100); MONO # 0.6 x10^3/uL (0.0-1.1); MONO % 9 % (0-9); NEUT # 4.3 x10^3/uL (1.8-7.7); NEUT % 67 % (31-73); PLATELET COUNT 280 x10^3/uL (140-400); RED BLOOD COUNT 3.59 x10^6/uL (3.50-5.40); RED CELL DISTRIBUTION WIDTH 13.3 % (11.5-14.5); WHITE BLOOD COUNT 6.4 x10^3/uL (4.0-11.0)
[2021-08-26] MEDS ORDERED: IV NORMAL SALINE 1000ML BAG 1,000 ML IV SCH (16:30)
[2021-08-26] MEDS ORDERED: CITRIC ACID/SODIUM CITRATE 30 ML SOLUTION. PO ONE (16:30)
[2021-08-26] MEDS ORDERED: IV RINGERS,LACTATED 1000ML 1,000 ML IV SCH (16:30)
[2021-08-26] MEDS ORDERED: FAMOTIDINE 20 MG/2 ML VIAL ONE (16:36)
[2021-08-26] MEDS ORDERED: OXYTOCIN 10 UNIT/ML VIAL. ONE ×5 (16:36→18:18)
[2021-08-26] MEDS ORDERED: fentaNYL PF VIAL 100 MCG/2 ML VIAL ONE (16:36)
[2021-08-26] MEDS ORDERED: MORPHINE PF 10 MG/10 ML AMPUL. ONE (16:36)
--- NOTE | 2021-08-26 16:36 | PDOC1 ---
OIL WELL CABLE TOOL DRILLER H&P Date of Admission: Date of Admission: Aug 26, 2021 at 14:20 History of Present Illness: EDC: 09/08/21 LMP: 11/19/20 30y @ 38.1 by 8wk u/s (per pt) presents to L&D with abd pain and LOF. The pt states that she has been LOF for the last 2 days. The pt also reports that she had had back and pelvic pain as well as N/V. The pt began her medical care at [facility]. She states that she had to find a new provider b/c she lived in [facility] and her insurance would not work for a [place] provider. She was then transferred to [facility]. She states that the transferred b/c she was high risk to [facility]. The pt states that she was designated as high risk b/c her cervix was low. It sound like what she is describing is that she had a placenta previa. The pt was asked why [facility] transferred her to [facility] since they could do high risk pr egnancy. She then said that they transferred her b/c the placenta had moved and she was no longer high risk. This does not completely make sense. An aminosure was performed and returned neg. She was ctxing every hr. With IV hydration the pt continued to ctx. PMH: Denies PSH: C/S x 2 Meds: PNV All: PCN OBHx: TSVD x 2, TC/S x 1, 36wk C/S, AB x 2 SH: no tob, no EtOH FH: noncontributory Past Medical History: Cardiovascular: No pertinent hx Past Surgical History: No pertinent history Social History: ALCOHOL: other Drugs: Marijuana Allergies: Coded Allergies: Penicillins (Verified Allergy, Intermediate, rash, hives, 10/09/15) amoxicillin (Verified Allergy, Intermediate, rash, hives, 10/09/15) Physical Exam: PE: GENERAL: No apparent distress. Alert and oriented. HEENT: Head normocephalic, atraumatic. NECK: Supple LUNGS: Clear to auscultation. HEART: RRR, S1, S2 present, pulses intact ABDOMEN: Soft, positive bowel sounds. EXTREMITIES: No cyanosis or edema. NEUROLOGIC: Normal speech, normal tone PSYCHIATRIC: Normal affect, normal mood. SKIN: No ulceration. FHT: 150s +acels/no decels/mLTV [place]: 2-3 min SVE Ft/Th/H Labs: Laboratory Tests Test 08/26/21 14:30 08/26/21 14:55 08/26/21 15:30 Urine Collection Type Unknown Urine Color (Auto) Light yellow Urine Turbidity Hazy Urine pH (Auto) 6.5 (<5.0-8.0) Urine Specific [place] 1.016 (1.000-1.030) Urine Protein (Auto) Negative mg/dL (Negative) Urine Glucose (Auto)(UA) Negative mg/dL (Negative) Urine Ketones (Auto) 60 mg/dL (Negative) Urine Blood (Auto) Negative (Negative) Urine Nitrite Negative (Negative) Urine Bilirubin (Auto) Negative (Negative) Urine Urobilinogen (Auto) Normal mg/dL (Normal) Urine Leukocyte Esterase (Auto) Negative (Negative) Urine RBC 0 /HPF (0-2) Urine WBC 0 /HPF (0-4) Urine Squamous Epithelial Cells Many /LPF Urine Bacteria Many /HPF (0-FEW) Urine Mucus Slight /LPF Amniotic Fluid Swab Test Negative White Blood Count 6.4 x10^3/uL (4.0-11.0) Red Blood Count 3.59 x10^6/uL (3.50-5.40) Hemoglobin 10.8 g/dL (12.0-15.5) L Hematocrit 31.5 % (36.0-47.0) L Mean Corpuscular Volume 88 fL (79-100) Mean Corpuscular Hemoglobin 30 pg (25-35) Mean Corpuscular Hemoglobin Concent 34 g/dL (31-37) Red Cell Distribution Width 13.3 % (11.5-14.5) Platelet Count 280 x10^3/uL (140-400) Neutrophils (%) (Auto) 67 % (31-73) Lymphocytes (%) (Auto) 21 % (24-48) L Monocytes (%) (Auto) 9 % (0-9) Eosinophils (%) (Auto) 2 % (0-3) Basophils (%) (Auto) 0 % (0-3) Neutrophils # (Auto) 4.3 x10^3/uL (1.8-7.7) Lymphocytes # (Auto) 1.4 x10^3/uL (1.0-4.8) Monocytes # (Auto) 0.6 x10^3/uL (0.0-1.1) Eosinophils # (Auto) 0.1 x10^3/uL (0.0-0.7) Basophils # (Auto) 0.0 x10^3/uL (0.0-0.2) Laboratory Tests 08/26/21 15:30 Laboratory Tests 08/26/21 15:30 Assessment & Plan: A/P 30y @ 38.1 by 8wk u/s (per pt) 1.) Insufficient care has been seen at multiple locations throughout . It is not clear why. Will attempt to get records Friday 2.) Active labor 3.) Prev C/S x 2 4.) PCN All has received cephalosporin in the past (Rocephin 04/26/18) 5.) Placenta previa resolved, per pt 6.) Fetus cat I FHT 7.) GBS unk ADRIANA ACUNA MD Aug 26, 2021 16:36
[2021-08-26 16:40] LABS: HEMATOCRIT 30.4 % (36.0-47.0); HEMOGLOBIN 10.7 g/dL (12.0-15.5); RED BLOOD COUNT 3.47 x10^6/uL (3.50-5.40); RED CELL DISTRIBUTION WIDTH 13.2 % (11.5-14.5); WHITE BLOOD COUNT 6.2 x10^3/uL (4.0-11.0)
[2021-08-26] MEDS ORDERED: ONDANSETRON PF 4 MG/2 ML VIAL. ONE (17:56)
[2021-08-26] MEDS ORDERED: PHENYLEPHRINE in 0.9% NACL PF 1 MG/10 ML SYRINGE. IV ONE (18:02)
[2021-08-26] MEDS ORDERED: ePHEDrine PF IN SALINE 50 MG/10 ML SYRINGE. IV ONE (18:02)
--- NOTE | 2021-08-26 19:14 | PDOC4 ---
OPERATIVE NOTE: PreOpDx: 1.) IUP @ 38.1 by 8wk u/s (per pt), 2.) Insufficient care, 3.) Active labor, 4.) Prev C/S x 2, 5.) PCN All, 6.) Placenta previa, 7.) GBS unk PostOp Dx: same Procedure: RLTCS Surgeon: Sanya Acuna Anesthesia: Spinal EBL: 800 cc Fluids 800 cc UOP: 200 cc Complications: None Findings: viable female delivered at 1817. Wt 6 lb 15 oz. APGARS 8/9. Nml tubes and ovaries Path: Cord blood and cord ABG ADRIANA ACUNA MD Aug 26, 2021 19:14
[2021-08-26] MEDS ORDERED: BENZOCAINE 20% TOPICAL AEROSOL SPRAY 57GM CAN. TP PRN (19:30)
[2021-08-26] MEDS ORDERED: OXYTOCIN 30 UNIT/500 ML PREMIX 500 ML IV PRN (19:30)
[2021-08-26] MEDS ORDERED: MMR per PROTOCOL. MC PRN (19:30)
[2021-08-26] MEDS ORDERED: 0.9 % SODIUM CHLORIDE 10 ML DISP.SYRIN. IV PRN (19:30)
[2021-08-26] MEDS ORDERED: oxyCODONE/APAP 5/325 1 TAB TABLET PO PRN (19:30)
[2021-08-26] MEDS ORDERED: ACETAMINOPHEN 325 MG TABLET. PO PRN (19:30)
[2021-08-26] MEDS ORDERED: TDaP (BOOSTRIX) per PROTOCOL. MC PRN (19:30)
[2021-08-26] MEDS: KETOROLAC 30 MG/ML VIAL. IVP PRN (19:38)
--- NOTE | 2021-08-26 19:49 | OP ---
DATE OF SURGERY: 08/26/2021 PREOPERATIVE DIAGNOSES: 1. Intrauterine at 38 weeks and 1 day by 8-week ultrasound per the patient. 2. Insufficient care. 3. Active labor. 4. Previous section x 2. 5. PENICILLIN ALLERGY. 6. Placenta previa, resolved. 7. GBS unknown. POSTOPERATIVE DIAGNOSES: 1. Intrauterine at 38 weeks and 1 day by 8-week ultrasound per the patient. 2. Insufficient care. 3. Active labor. 4. Previous section x 2. 5. PENICILLIN ALLERGY. 6. Placenta previa, resolved. 7. GBS unknown. PROCEDURE: Repeat low transverse . SURGEON: Caleb Aguila MD. ANESTHESIA: Spinal. ESTIMATED BLOOD LOSS: 800 mL. FLUIDS: 800 mL. URINE OUTPUT: 200 mL. COMPLICATIONS: None. FINDINGS: Viable female infant delivered at 181, weighing 6 pounds 15 ounces with Apgars of 8 and 9. Normal maternal tubes and ovaries noted. PATHOLOGY: Cord blood and cord ABG. DESCRIPTION OF PROCEDURE: The patient was taken to the operating room where spinal anesthesia was placed without difficulty. The patient was prepped and draped in a normal sterile fashion. Her previous Pfannenstiel skin incision was used to cut down to underlying layer of fascia. The fascia was then nicked in the midline. The fascial incision was then extended laterally with Fisher scissors. The superior aspect of fascial incision was then grasped with Tl clamps and elevated and underlying rectus muscle was dissected off with the scalpel. Attention was then turned to the inferior aspect of the fascial incision, which was grasped with Tl clamps, elevated and underlying rectus muscle was dissected off with Fisher scissors. At that point, the rectus muscle was sufficiently for the peritoneum to be grasped with 2 hemostats. The peritoneum was then tented up and entered sharply with Metzenbaum scissors. At that point, digital examination revealed the midline to be free of adhesions, but it did feel like inferiorly to the right there were some omental adhesions appreciated. This was out of the way of the extension of the peritoneum, so at that point, the peritoneal incision was then extended superiorly and inferiorly with good visualization of the bladder with traction and countertraction. At that point, the Yao ring was then placed in the abdomen to better visualize the lower uterine segment. A bladder flap was then created with Metzenbaum scissors. The lower uterine segment was then incised in transverse fashion with a scalpel. Hysterotomy was extended with traction and countertraction. At that point, the 's head was flexed, but could not be brought through the hysterotomy. Additional traction was then placed with vacuum. The hysterotomy still did not allow for the infant to be delivered, so the hysterotomy was extended on the left with bandage scissors. Once this had been performed and the vacuum was reapplied, the infant's head was able to be delivered without difficulty. The rest of was delivered atraumatically. The cord was double clamped and cut. Infant was handed over to the waiting core blower. At that point, the placenta was removed manually and cleared of all clots and debris. Uterine incision was then repaired with #1 chromic in a running locked fashion. Second layer of same suture was used to imbricate. There was an area just right of midline that was bleeding. A [id number] stitch was then placed with #1 chromic with good hemostasis achieved. At that point, the uterus was exteriorized. Examination of the tubes and ovaries revealed them to be normal. The uterus was then returned to the abdomen. At that point, the gutters were copiously irrigated and cleared of all the clots and debris. At that point, the Yao ring was then removed. Examination of the peritoneum revealed the right inferior portion that have some omental adhesions. The omentum was then from the peritoneum with the Bovie. Once the omentum was free, the peritoneum was then reapproximated with 2-0 Vicryl in a running fashion. The muscle was reapproximated with 2-0 Vicryl in a running fashion. The fascia was then closed with 0 Vicryl in a running fashion. The skin was then closed with 3-0 Monocryl in a subcuticular manner. Sponges, laps and needles correct x 3. Two grams of Ancef were given prior to the procedure. The patient was taken to recovery room in stable condition. SHONNA DR: Stanislaw TID: [id number] [facility]
[2021-08-26] MEDS: diphenhydrAMINE ORAL ELIXIR 12.5 MG/5 ML ML PO PRN (23:41)
[2021-08-27] MEDS: KETOROLAC 30 MG/ML VIAL. IVP PRN ×3 (01:46→13:26)
[2021-08-27 08:02] LABS: HEMATOCRIT 27.9 % (36.0-47.0); HEMOGLOBIN 9.8 g/dL (12.0-15.5); RED BLOOD COUNT 3.18 x10^6/uL (3.50-5.40); RED CELL DISTRIBUTION WIDTH 13.2 % (11.5-14.5); WHITE BLOOD COUNT 7.5 x10^3/uL (4.0-11.0)
[2021-08-27] MEDS: diphenhydrAMINE ORAL ELIXIR 12.5 MG/5 ML ML PO PRN ×2 (08:58→16:57)
--- NOTE | 2021-08-27 08:58 | NUR ---
Patient c/o generalized itching. no rash noted, ice and Benadryl offered
[2021-08-27] MEDS ORDERED: PRENATAL MULTIVITAMIN TABLET. PO SCH (09:00)
--- NOTE | 2021-08-27 09:34 | PDOC ---
PATIENT ACCESS SPECIALIST PROGRESS NOTE Date of Service: DATE: 08/27/21 TIME: 09:34 Subjective: Pt with good pain control. Mary Ann PO. Fisher in place. Minimal lochia. Objective: Vital Signs: Vital Signs Date Time Temp Pulse Resp B/P (MAP) Pulse Ox O2 Delivery O2 Flow Rate FiO2 08/27/21 01:52 98.0 90 120/78 (92) 95 Room Air 98.0 Vital Signs Date Time Temp Pulse Resp B/P (MAP) Pulse Ox O2 Delivery O2 Flow Rate FiO2 08/27/21 05:22 98.6 90 112/80 (91) 97 Room Air 98.6 Labs: Laboratory Tests Test 08/26/21 14:30 08/26/21 14:55 08/26/21 15:30 08/26/21 16:34 Urine Collection Type Unknown Urine Color (Auto) Light yellow Urine Turbidity Hazy Urine pH (Auto) 6.5 (<5.0-8.0) Urine Specific [place] 1.016 (1.000-1.030) Urine Protein (Auto) Negative mg/dL (Negative) Urine Glucose (Auto)(UA) Negative mg/dL (Negative) Urine Ketones (Auto) 60 mg/dL (Negative) Urine Blood (Auto) Negative (Negative) Urine Nitrite Negative (Negative) Urine Bilirubin (Auto) Negative (Negative) Urine Urobilinogen (Auto) Normal mg/dL (Normal) Urine Leukocyte Esterase (Auto) Negative (Negative) Urine RBC 0 /HPF (0-2) Urine WBC 0 /HPF (0-4) Urine Squamous Epithelial Cells Many /LPF Urine Bacteria Many /HPF (0-FEW) Urine Mucus Slight /LPF Amniotic Fluid Swab Test Negative White Blood Count 6.4 x10^3/uL (4.0-11.0) 6.2 x10^3/uL (4.0-11.0) Red Blood Count 3.59 x10^6/uL (3.50-5.40) 3.47 x10^6/uL (3.50-5.40) L Hemoglobin 10.8 g/dL (12.0-15.5) L 10.7 g/dL (12.0-15.5) L Hematocrit 31.5 % (36.0-47.0) L 30.4 % (36.0-47.0) L Mean Corpuscular Volume 88 fL (79-100) 88 fL (79-100) Mean Corpuscular Hemoglobin 30 pg (25-35) 31 pg (25-35) Mean Corpuscular Hemoglobin Concent 34 g/dL (31-37) 35 g/dL (31-37) Red Cell Distribution Width 13.3 % (11.5-14.5) 13.2 % (11.5-14.5) Platelet Count 280 x10^3/uL (140-400) 270 x10^3/uL (140-400) Neutrophils (%) (Auto) 67 % (31-73) Lymphocytes (%) (Auto) 21 % (24-48) L Monocytes (%) (Auto) 9 % (0-9) Eosinophils (%) (Auto) 2 % (0-3) Basophils (%) (Auto) 0 % (0-3) Neutrophils # (Auto) 4.3 x10^3/uL (1.8-7.7) Lymphocytes # (Auto) 1.4 x10^3/uL (1.0-4.8) Monocytes # (Auto) 0.6 x10^3/uL (0.0-1.1) Eosinophils # (Auto) 0.1 x10^3/uL (0.0-0.7) Basophils # (Auto) 0.0 x10^3/uL (0.0-0.2) Treponema pallidum Antibody Nonreactive (Nonreactive) Test 08/26/21 17:20 08/27/21 07:35 SARS-CoV-2 Antigen (Rapid) Negative (NEGATIVE) White Blood Count 7.5 x10^3/uL (4.0-11.0) Red Blood Count 3.18 x10^6/uL (3.50-5.40) L Hemoglobin 9.8 g/dL (12.0-15.5) L Hematocrit 27.9 % (36.0-47.0) L Mean Corpuscular Volume 88 fL (79-100) Mean Corpuscular Hemoglobin 31 pg (25-35) Mean Corpuscular Hemoglobin Concent 35 g/dL (31-37) Red Cell Distribution Width 13.2 % (11.5-14.5) Platelet Count 227 x10^3/uL (140-400) Laboratory Tests 08/26/21 15:30 08/26/21 16:34 08/27/21 07:35 Laboratory Tests 08/27/21 07:35 Physical Exam: GENERAL: No apparent distress. Alert and oriented. HEENT: Head normocephalic, atraumatic. NECK: Supple LUNGS: Clear to auscultation. HEART: RRR, S1, S2 present, pulses intact ABDOMEN: Soft, positive bowel sounds. EXTREMITIES: No cyanosis or edema. NEUROLOGIC: Normal speech, normal tone PSYCHIATRIC: Normal affect, normal mood. SKIN: No ulceration. FFNT below umb No C/C/E Inc: dressing dry Assessment & Plan: A/P 30y POD #1 s/p RLTCS 1.) PO doing well 2.) Insufficient care will attempt to get records today, if successful will get drop in labs 3.) Anemia Hgb 10.8 -> 9.8 4.) Cont PO care ADRIANA ACUNA MD Aug 27, 2021 09:34
[2021-08-27] MEDS: oxyCODONE/APAP 5/325 1 TAB TABLET PO PRN ×3 (13:25→21:35)
[2021-08-27] MEDS: DOCUSATE SODIUM 100 MG CAPSULE. PO PRN (21:35)
[2021-08-27] MEDS: IBUPROFEN 400 MG TABLET. PO PRN (21:35)
[2021-08-27] MEDS: MULTIVITAMIN with MINERAL TABLET. PO SCH (22:04)
[2021-08-27] MEDS: FERROUS SULFATE 325 MG TABLET. PO SCH (22:05)
[2021-08-28] MEDS: diphenhydrAMINE ORAL ELIXIR 12.5 MG/5 ML ML PO PRN ×2 (03:59→23:33)
[2021-08-28] MEDS: IBUPROFEN 400 MG TABLET. PO PRN ×3 (04:00→23:42)
[2021-08-28] MEDS: oxyCODONE/APAP 5/325 1 TAB TABLET PO PRN ×5 (04:00→21:56)
[2021-08-28] MEDS: MULTIVITAMIN with MINERAL TABLET. PO SCH (09:39)
[2021-08-28] MEDS: FERROUS SULFATE 325 MG TABLET. PO SCH ×2 (09:40→17:30)
[2021-08-28] MEDS: DOCUSATE SODIUM 100 MG CAPSULE. PO PRN ×2 (09:40→23:42)
--- NOTE | 2021-08-28 16:50 | PDOC ---
ANIMAL HERDER PROGRESS NOTE Date of Service: DATE: 08/28/21 TIME: 16:49 Subjective: Pt with good pain control. Mary Ann PO. Fisher in place. Minimal lochia. Objective: Vital Signs: Vital Signs Date Time Temp Pulse Resp B/P (MAP) Pulse Ox O2 Delivery O2 Flow Rate FiO2 08/27/21 09:29 97.9 93 20 102/78 (86) 96 97.9 08/27/21 20:00 Room Air Vital Signs Date Time Temp Pulse Resp B/P (MAP) Pulse Ox O2 Delivery O2 Flow Rate FiO2 08/28/21 14:34 16 08/28/21 10:20 98.3 72 116/66 (83) 99 Room Air 98.3 Physical Exam: GENERAL: No apparent distress. Alert and oriented. HEENT: Head normocephalic, atraumatic. NECK: Supple LUNGS: Clear to auscultation. HEART: RRR, S1, S2 present, pulses intact ABDOMEN: Soft, positive bowel sounds. EXTREMITIES: No cyanosis or edema. NEUROLOGIC: Normal speech, normal tone PSYCHIATRIC: Normal affect, normal mood. SKIN: No ulceration. FFNT below umb No C/C/E Inc: C/D/I Assessment & Plan: A/P 30y POD #2 s/p RLTCS 1.) PO doing well 2.) Insufficient care records reviewed 3.) Anemia Hgb 10.8 -> 9.8 4.) Cont PO care ADRIANA ACUNA MD Aug 28, 2021 16:50
[2021-08-29] MEDS: oxyCODONE/APAP 5/325 1 TAB TABLET PO PRN ×3 (05:07→18:33)
[2021-08-29] MEDS ORDERED: FLUTICASONE 50MCG/NASAL SPRAY 16GM BOTTLE. NS SCH (09:00)
[2021-08-29] MEDS: FERROUS SULFATE 325 MG TABLET. PO SCH (10:28)
[2021-08-29] MEDS: MULTIVITAMIN with MINERAL TABLET. PO SCH (10:28)
[2021-08-29] MEDS: IBUPROFEN 400 MG TABLET. PO PRN ×2 (10:28→18:33)
[2021-08-29] MEDS: DOCUSATE SODIUM 100 MG CAPSULE. PO PRN ×2 (10:28→18:33)
--- NOTE | 2021-08-29 12:48 | PDOC ---
APPAREL CUTTER PROGRESS NOTE Date of Service: DATE: 08/29/21 TIME: 12:47 Subjective: Pt with good pain control. Mary Ann PO. Fisher in place. Minimal lochia. Objective: Vital Signs: Vital Signs Date Time Temp Pulse Resp B/P (MAP) Pulse Ox O2 Delivery O2 Flow Rate FiO2 08/28/21 08:40 Room Air 08/28/21 09:41 16 08/28/21 10:20 98.3 72 116/66 (83) 99 98.3 Vital Signs Date Time Temp Pulse Resp B/P (MAP) Pulse Ox O2 Delivery O2 Flow Rate FiO2 08/29/21 10:28 18 Nasal Cannula 08/29/21 05:07 97 08/29/21 04:59 98.3 84 122/90 (101) 98.3 Physical Exam: GENERAL: No apparent distress. Alert and oriented. HEENT: Head normocephalic, atraumatic. NECK: Supple LUNGS: Clear to auscultation. HEART: RRR, S1, S2 present, pulses intact ABDOMEN: Soft, positive bowel sounds. EXTREMITIES: No cyanosis or edema. NEUROLOGIC: Normal speech, normal tone PSYCHIATRIC: Normal affect, normal mood. SKIN: No ulceration. FFNT below umb No C/C/E Inc: C/D/I Assessment & Plan: A/P 30y POD #3 s/p RLTCS 1.) PO doing well 2.) Insufficient care records reviewed 3.) Anemia Hgb 10.8 -> 9.8 4.) D/c home ADRIANA ACUNA MD Aug 29, 2021 12:48
[2021-08-29] MEDS ORDERED: OXYC1TAB15 PO (13:16)
[2021-08-29 18:30] VITALS: BP 132/90
--- NOTE | 2021-08-29 19:08 | NUR ---
Pt. discharges from unit at 1849, pt. alert and oriented on room air, leaves via wheelchair accompanied by partner and , belongings discharge with pt.
--- NOTE | 2021-09-06 10:09 | DS ---
DATE OF DISCHARGE: 08/29/2021 ADMISSION DIAGNOSES: 1. Intrauterine at 38 weeks and 1 day by an 8-week ultrasound per the patient. 2. Insufficient care. 3. Active labor. 4. Previous section x 2. 5. PENICILLIN ALLERGY. 6. Placenta previa, resolved. 7. GBS unknown. DISCHARGE DIAGNOSES: 1. Intrauterine at 38 weeks and 1 day by an 8-week ultrasound per the patient. 2. Insufficient care. 3. Active labor. 4. Previous section x 2. 5. PENICILLIN ALLERGY. 6. Placenta previa, resolved. 7. GBS unknown. PROCEDURE: Repeat low transverse . BRIEF HOSPITAL COURSE: The patient is a 30-year-old 7, para 3-1-0-4, who presented to Labor and Delivery at 38 weeks and 1 day by 8-week ultrasound per the patient for abdominal pain and leakage of fluid. The patient had reported that she had leakage of fluid for the last 2 days. The patient also had back pain and pelvic pain as well as some nausea and vomiting. The patient states that she began her care at [facility]. The patient ultimately had to find a new OB because she resided in [place] so her insurance would not allow for her to see a [place] provider. The patient ultimately transferred to [facility] and then the patient said she was transferred to [facility] for high risk condition, which sounded like a placenta previa. It was not clear why she was transferred from [facility] to [facility], but ultimately her records requested. The patient was found to be chema regularly and with her history of two previous C-sections, she was taken to the operating room for repeat since she was in active labor. The patient underwent said procedure. See operative note for full detail. By postop day #3, the patient was meeting all discharge criteria and was subsequently discharged home. Of note, the patient had a hemoglobin of 10.8 on presentation and after delivery was found to be 9.8. DISCHARGE INSTRUCTIONS: The patient was told not to lift anything greater than 20 pounds, have pelvic rest for 6 weeks, not to drive while on narcotics. CALL IF: The patient was to call if she had fevers, chills, nausea, vomiting, abdominal pain or any additional questions or concerns. FOLLOWUP APPOINTMENT: The patient is to follow up on 09/05/2021 at 1:15 p.m. for an incision check. DISCHARGE MEDICATIONS: The patient was given a prescription for Percocet 5, 15 pills; Motrin 800 mg, 30 pills; ferrous sulfate 325 mg, 30 pills and Colace 100 mg, [address]: Stanislaw TID: [id number]
== END 2021-08-29 18:49 | disposition home or self-care (01) | DRG 787 ==
LOC: 3 SO LND 14:20 → OBSVTOIN 16:23 → INTOOBSV 18:35 → OBSVTOIN 18:35 → 3 SO LND 08-27 13:52 → UNDODISIN 08-29 18:49
PROVIDERS: ADMIT Obstetrics & Gynecology; ATTEND Obstetrics & Gynecology
PROC: 10D00Z1 Extraction of Products of Conception, Low, Open Approach (ICD-10-PCS; principal; 2021-08-26)
DX: O34.211 Maternal care for low transverse scar from previous cesarean delivery (principal); O44.03 Complete placenta previa NOS or without hemorrhage, third trimester; Z37.0 Single live birth; Z3A.38 38 weeks gestation of pregnancy; Z88.0 Allergy status to penicillin; O90.81 Anemia of the puerperium; D64.9 Anemia, unspecified; Z20.822 Contact with and (suspected) exposure to COVID-19
CPT/HCPCS: 36415; 81001; 84112; 85025; 85027; 86592; 86850; 86900; 86901; 87086; 87426; C1755; G0378; G0379; J0690; J1885; J2274; J2370; J2405; J2590; J3010; J3490; J7120; U0003